=== PATIENT | female | born 1995 | race Caucasian/White ===

== ENCOUNTER 2019-09-27 13:31 | Inpatient (IN) ==
[2019-09-27] MEDS ORDERED: ACETAMINOPHEN 325 MG TABLET PO ONE (15:00)
[2019-09-27] MEDS ORDERED: 0.9 % SODIUM CHLORIDE 1,000 ML IV ONE ×2 (15:14→17:35)
--- NOTE | 2019-09-27 15:40 | XRay Report ---
CLINICAL INFORMATION: fever COMPARISON: 05/02/2017 FINDINGS: Heart size, mediastinum and pulmonary vessels are normal. Small infiltrate posterior right lower lobe appreciated. Bones and soft tissues normal. IMPRESSION: Small infiltrate, likely pneumonia, in the posterior right lower lobe Interpreted and Authenticated by: Christian Wise 09/27/19
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
[2019-09-27 16:10] LABS: ALT/SGPT 25 U/l (0-40); AST/SGOT 39 U/l (0-37); Albumin 2.7 gm/dL (3.2-5.2); Albumin/Globulin Ratio 0.8 (1.0-2.3); Alkaline Phosphatase 145 U/L (39-117); Bilirubin,Total 0.6 mg/dL (0.0-1.0); Blood Urea Nitrogen 21 mg/dl (6-20); Calcium 8.4 mg/dl (8.6-10.4); Carbon Dioxide 20 mmol/L (22-30); Globulin 3.3 gm/dL (2.2-3.7); Glomerular Filtration Rate 39; Glucose 70 mg/dL (70-105)
[2019-09-27 16:17] LABS: Chloride 87 mmol/L (96-108)
[2019-09-27 16:22] LABS: Basophils # (Auto) 0.11 K/mcL (0.00-0.30); Basophils % (Auto) 0.4 % (0.0-2.0); Eosinophils # (Auto) 0.09 K/mcL (0.00-0.70); Eosinophils % (Auto) 0.4 % (0.0-7.0); Granulocytes % (Auto) 90.7 % (38.0-78.0); Hematocrit 32.8 % (34.1-44.9); Hemoglobin 11.5 g/dL (11.2-15.7); Lymphocytes # (Auto) 0.54 K/mcL (1.50-4.80); Lymphocytes % (Auto) 2.1 % (15.5-49.0); Mean Cell Volume 93.2 fL (80.0-100.0); Mean Corpuscular HGB Conc 35.1 g/dL (31.0-36.0); Monocytes # (Auto) 1.62 K/mcL (0.10-0.90); Monocytes % (Auto) 6.4 % (1.0-12.0); Platelet Count 139 K/mcL (140-440); RBC 3.52 M/mcL (3.59-5.38); Red Cell Distribution Width 12.2 % (11.5-14.5); WBC 25.5 K/mcL (4.50-11.00)
[2019-09-27] MEDS ORDERED: POTASSIUM CHLORIDE 20 MEQ TABLET PO ONE (16:22)
[2019-09-27] MEDS ORDERED: cefTRIAXone 2 GM in DEXTROSE 5% IN WATER 50 ML IV ONE (16:22)
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
[2019-09-27] MEDS ORDERED: LACTULOSE 20 GM/30 ML ORAL.SOL PO PRN (18:53)
[2019-09-27] MEDS ORDERED: SENNOSIDES 1 TABLET PO PRN (18:53)
[2019-09-27] MEDS: 0.45 % SODIUM CHLORIDE 1,000 ML IV SCH (19:01)
[2019-09-27] MEDS: AZITHROMYCIN 500 MG in DEXTROSE 5% IN WATER 250 ML IV SCH (19:12)
[2019-09-27] MEDS: HYDROcodone/APAP 5/325MG TABLET PO PRN (19:30)
[2019-09-27] MEDS: ONDANSETRON 4 MG/2 ML VIAL IV PRN (19:34)
[2019-09-27 20:59] LABS: Appearance,Urine CLEAR; Bacteria,Urine 0 /hpf (0); Bilirubin,Urine NEG (NEG); Color,Urine STRAW; Culture Indicated,Urine NO; Glucose,Urine (UA) NEGATIVE (NEG); Ketones,Urine 5/TR mg/dL (NEG); Leukocyte Esterase,Urine 25 /uL (NEG); Nitrate,Urine NEG (NEG); Protein,Urine NEG (NEG); Specific Gravity,Urine 1.003 (1.000-1.035); Urine Blood 0.03 mg/dL (<0.03); Urine RBC 1 /hpf (0-1); Urine Squamous Epithelial Cell 1 /hpf (0-4); Urine WBC 2 /hpf (0-4); Urobilinogen,Urine NEG (NEG)
[2019-09-27] MEDS: FAMOTIDINE 20 MG TABLET PO SCH (21:22)
[2019-09-27] MEDS: ACETAMINOPHEN 325 MG TABLET PO PRN (21:22)
[2019-09-27] MEDS: 0.9 % SODIUM CHLORIDE 10 ML SYRINGE IV SCH (21:22)
[2019-09-28] MEDS: HYDROcodone/APAP 5/325MG TABLET PO PRN ×4 (02:34→18:37)
[2019-09-28] MEDS: ACETAMINOPHEN 325 MG TABLET PO PRN ×3 (03:06→20:45)
[2019-09-28] MEDS: 0.45 % SODIUM CHLORIDE 1,000 ML IV SCH ×2 (04:43→16:54)
[2019-09-28] MEDS: 0.9 % SODIUM CHLORIDE 10 ML SYRINGE IV SCH ×4 (05:55→22:45)
[2019-09-28 07:11] LABS: ALT/SGPT 19 U/l (0-40); AST/SGOT 29 U/l (0-37); Albumin 2.2 gm/dL (3.2-5.2); Albumin/Globulin Ratio 0.8 (1.0-2.3); Alkaline Phosphatase 203 U/L (39-117); Bilirubin,Direct 0.3 mg/dL (0.0-0.3); Bilirubin,Total 0.4 mg/dL (0.0-1.0); Carbon Dioxide 20 mmol/L (22-30); Chloride 97 mmol/L (96-108); Globulin 2.8 gm/dL (2.2-3.7); Glucose 64 mg/dL (70-105); Lactate Dehydrogenase 382 U/L (94-250); Uric Acid 5.6 mg/dL (2.5-8.0)
[2019-09-28 07:18] LABS: Blood Urea Nitrogen 15 mg/dl (6-20); Glomerular Filtration Rate 58; Phosphorous 1.7 mg/dL (2.7-4.5); Triglycerides 373 mg/dl (<150)
[2019-09-28] MEDS: FAMOTIDINE 20 MG TABLET PO SCH ×2 (07:24→20:45)
[2019-09-28 07:45] LABS: Basophils # (Auto) 0.17 K/mcL (0.00-0.30); Basophils % (Auto) 0.7 % (0.0-2.0); Eosinophils # (Auto) 0.01 K/mcL (0.00-0.70); Eosinophils % (Auto) 0 % (0.0-7.0); Granulocytes % (Auto) 89.5 % (38.0-78.0); Hematocrit 30.8 % (34.1-44.9); Hemoglobin 10.8 g/dL (11.2-15.7); Lymphocytes # (Auto) 0.65 K/mcL (1.50-4.80); Lymphocytes % (Auto) 2.7 % (15.5-49.0); Mean Cell Volume 93.9 fL (80.0-100.0); Mean Corpuscular HGB Conc 35.1 g/dL (31.0-36.0); Mean Platelet Volume 10.6 fL (7.4-10.4); Monocytes # (Auto) 1.72 K/mcL (0.10-0.90); Monocytes % (Auto) 7.1 % (1.0-12.0); Platelet Count 132 K/mcL (140-440); RBC 3.28 M/mcL (3.59-5.38); Red Cell Distribution Width 12.2 % (11.5-14.5); WBC 24.2 K/mcL (4.50-11.00)
[2019-09-28] MEDS ORDERED: POTASSIUM CHLORIDE 20 MEQ TABLET PO ONE (08:51)
[2019-09-28] MEDS ORDERED: cefTRIAXone 2 GM in DEXTROSE 5% IN WATER 50 ML IV SCH (09:00)
[2019-09-28] MEDS ORDERED: POTASSIUM PHOSPHATE 40 MEQ in DEXTROSE 5% IN WATER 500 ML IV ONE ×2 (09:00→19:41)
[2019-09-28] MEDS ORDERED: POTASSIUM CHLORIDE 40 MEQ in DEXTROSE 5% IN WATER 500 ML IV ONE (09:00)
[2019-09-28] MEDS ORDERED: FLU VACC QS2019-20(6MOS UP)/PF 60 MCG/0.5 ML SYRINGE IM ONE (10:00)
[2019-09-28] MEDS: AZITHROMYCIN 500 MG in DEXTROSE 5% IN WATER 250 ML IV SCH (10:08)
--- NOTE | 2019-09-28 12:58 | Internal Med Progress Note ---
Medical - PN: Subj Patient information: Note initiated : 09/28/19 at 12:56 pm Service Date, if different from initiated Date: [] Patient: Tatiana Carrillo 24 y/o F admitted on 09/27/19 for Cold/Flu. Chief Complaint: [] Interval history: Ms. Carrillo is a 24 year old F with past medical history of endometriosis, poss ible interstitial cystitis who presents to the emergency department with 6 days of illness. She states that she has had high fever, body aches, nausea and vomiting of bilious emesis for the first 4 days as well as a sore throat. She remains febrile, was 102 degrees in the emergency department. The body aches are ongoing and she still has a sore throat. In addition she is developed some chest pain in the lower sternal/right lower chest area with breathing. She has had no cough or sputum production. She does complain of a dry mouth. Today was the sixth day of symptoms and she presents for further evaluation. She has had no ill contacts. She has had no travel, no exposures to recent tr avelers. She did not get a flu shot. In the emergency department, she has significant leukocytosis, fever, tachycardia and tachypnea. Lactate is normal. She is in renal failure with creatinine of 1.8. Patient does note that she has been drinking fluids, particularly water to try to stay hydrated. She noticed her urine was a little dark yesterday. She is noticed no blood in her urine. Patient feeling a little better this morning. Still with significant right- sided sharp pain in the lower chest with inspiration. No cough, no sputum production. Good urine output. Has not felt feverish. - Constitutional Vitals: Vital Signs Temp Pulse Resp BP Pulse Ox 98.7 F 118 H 25 H 105/61 96 09/28/19 12:00 09/28/19 12:00 09/28/19 11:00 09/28/19 12:09/28/19 12:00 Period Temp Pulse Resp BP Sys/Peña Pulse Ox Last 24 Hr 97.7 F-102.4 F 96-140 17-37 87-120/43-98 90-100 Intake and Output 09/27/19 09/28/19 09/28/19 21:59 05:59 13:59 Intake Total 1000 3470 410 Output Total 650 2900 800 Balance 350 570 -390 Weight 136 lb 11.2 oz 136 lb 11.2 oz Patient Weight 09/29/19 05:59 Weight 136 lb 11.2 oz Intake & Output: Intake & Output 09/27/19 09/28/19 09/28/19 21:59 05:59 13:59 Intake Total 1000 3470 410 Output Total 650 2900 800 Balance 350 570 -390 Weight 136 lb 11.2 oz 136 lb 11.2 oz Intake: IV 1000 2270 50 Sodium Chloride 0.45% 1,000 ml 970 @ 100 mls/hr IV .Q10H [facility] Rx#: [id number] Sodium Chloride 0.9% 1,000 ml @ 1000 1000 Wide Open IV BOLUS ONE Rx#: [id number] Zithromax 500 mg In Dextrose 5% 250 in Water 250 ml @ 250 mls/hr IV DAILY [facility] Rx#:[id number] Rocephin 2 gm In Dextrose 5% in 50 Water 50 ml @ 100 mls/hr IV DAILY [facility] Rx#:[id number] Rocephin 2 gm In Dextrose 5% in 50 Water 50 ml @ 100 mls/hr IV ONCE ONE Rx#:[id number] Oral 1200 360 Output: Void Amount 650 2900 800 Other: Urine Appearance Clear Clear Clear Urine Color Bright Yellow Bright Yellow Bright Yellow Urine Odor Normal Exam: General: Appears more comfortable, nontoxic Chest: Diminished breath sounds in the right lower lung field without egophony. Otherwise no rales or wheezing. Respirations are mildly labored Cardiovascular: Mildly tachycardic, regular, no edema Abdomen: Soft, mild tenderness with palpation over the right upper quadrant/lower anterior chest wall. No abdominal guarding or rebound Neuro: Alert, oriented x3, ambulatory. Medical - PN: Obj Da - Labs CBC & Chem 7: 09/28/19 04:46 09/28/19 04:46 Labs: Abnormal Lab Results 09/28/19 09/28/19 09/27/19 04:46 04:46 22:43 WBC 24.2 H RBC 3.28 L Hgb 10.8 L Hct 30.8 L Plt Count 132 L MPV 10.6 H Gran % 89.5 H Lymph % (Auto) 2.7 L Gran # 21.64 H Lymph # (Auto) 0.65 L [place] # (Auto) 1.72 H Sodium 132 L 129 L Potassium 2.8 L* Chloride Carbon Dioxide 20 L BUN Creatinine 1.3 H Glucose 64 L Calcium 8.0 L Phosphorus 1.7 L GGT 140 H AST Alkaline Phosphatase 203 H Lactate Dehydrogenase 382 H Total Protein 5.0 L Albumin 2.2 L Albumin/Globulin Ratio 0.8 L Triglycerides 373 H Urine Ketones Urine Occult Blood Ur Leukocyte Esterase 09/27/19 09/27/19 09/27/19 20:00 19:47 15:25 WBC RBC Hgb Hct Plt Count MPV Gran % Lymph % (Auto) Gran # Lymph # (Auto) [place] # (Auto) Sodium 129 L 123 L Potassium 3.1 L Chloride 87 L Carbon Dioxide 20 L BUN 21 H Creatinine 1.8 H Glucose Calcium 8.4 L Phosphorus GGT AST 39 H Alkaline Phosphatase 145 H Lactate Dehydrogenase Total Protein Albumin 2.7 L Albumin/Globulin Ratio 0.8 L Triglycerides Urine Ketones 5/tr A Urine Occult Blood 0.03 A Ur Leukocyte Esterase 25 A 09/27/19 15:25 WBC 25.5 H RBC 3.52 L Hgb Hct 32.8 L Plt Count 139 L MPV 11.0 H Gran % 90.7 H Lymph % (Auto) 2.1 L Gran # 23.09 H Lymph # (Auto) 0.54 L [place] # (Auto) 1.62 H Sodium Potassium Chloride Carbon Dioxide BUN Creatinine Glucose Calcium Phosphorus GGT AST Alkaline Phosphatase Lactate Dehydrogenase Total Protein Albumin Albumin/Globulin Ratio Triglycerides Urine Ketones Urine Occult Blood Ur Leukocyte Esterase Meds: Medications Acetaminophen (Tylenol) 650 mg PO Q6HP PRN; Protocol PRN Reason: Per Pain Protocol/Fever > 101 Last Admin: 09/28/19 03:06 Dose: 650 mg Documented by: Hydrocodone Bitart/Acetaminophen ([place] 5/325mg) 1 tab PO Q4HP PRN; Protocol PRN Reason: Per Pain Protocol Last Admin: 09/28/19 07:23 Dose: 1 tab Documented by: Famotidine (Pepcid) 20 mg PO BID [facility] Last Admin: 09/28/19 07:24 Dose: 20 mg Documented by: Sodium Chloride (Sodium Chloride 0.45%) 1,000 mls @ 100 mls/hr IV .Q10H [facility] Last Admin: 09/28/19 04:43 Dose: 100 mls/hr Documented by: Ceftriaxone Sodium 2 gm/ (Dextrose) 50 mls @ 100 mls/hr IV DAILY [facility]; Protocol Last Infusion: 09/28/19 10:40 Dose: Infused Documented by: Azithromycin 500 mg/ Dextrose 250 mls @ 250 mls/hr IV DAILY [facility]; Protocol Stop: 09/29/19 09:59 Last Admin: 09/28/19 10:08 Dose: 250 mls/hr Documented by: Potassium Phosphate 40 meq/ (Dextrose) 509.0909 mls @ 127.273 mls/hr IV ONCE ONE Stop: 09/28/19 12:59 Last Admin: 09/28/19 10:07 Dose: 127.273 mls/hr Documented by: Lactulose (Cephulac) 10 gm PO DAILYP PRN PRN Reason: Constipation Ondansetron HCl (Zofran) 4 mg IV Q4HP PRN; Protocol PRN Reason: Nausea And Vomiting Last Admin: 09/27/19 19:34 Dose: 4 mg Documented by: Senna (Senokot) 2 tab PO HSP PRN PRN Reason: Constipation Sodium Chloride (Saline Flush) 10 ml IV Q8 [facility] Last Admin: 09/28/19 05:55 Dose: 10 ml Documented by: - Imaging and cardiology Chest x-ray Status: image reviewed by me Additional comments: Repeat radiograph today shows continued development of right lower/posterior infiltrate. Clear costophrenic margins. Medical - PN: A/P - Time Spent With Patient Total time spent is greater than 50% in coordination of care (as documented) at patient's floor/unit and/or counseling patient: - Narrative A/P Narrative: 24-year-old female presenting with fever, leukocytosis, tachycardia and tach ypnea with normal lactate. Has right lower lobe infiltrate. Sepsis from pneumonia. Sepsis as noted by tachypnea, tachycardia, leukocytosis and fever. Lactate is normal, not severe sepsis or septic shock. Initial mild right lower lobe infiltrate on radiograph, is worsened with hydration. Still with white count of 24,000, PCT 48, though appears nontoxic and tachypnea and tachycardia are improving with therapy. RVP both negative. Monospot negative. Urinary pneumococcal antigen, serum mycoplasma are negative. Still concerned this could be a post influenza pneumonia, having now cleared her influenza infection, thus will continue to cover for staph aureus. Acute renal failure. Improving. Creatinine was 1.8, now down to 1.3. BUN is not significantly elevated. Possibly representing prerenal, though ATN is a possibility from her prolonged illness with volume depletion leading to renal hypoperfusion. Post infectious glomerulonephritis is also a possibility. Fractional excretion of sodium 1.9%, suggesting ATN, though has improved with fluids however. Hyponatremia. Serum sodium 123 at presentation. 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 Received saline boluses in ED, but serum sodium stable at 129 yesterday evening on half-normal saline, slowly up to 132 today.. Hypokalemia, possibly from GI losses and poor intake. Plan: Continue with ceftriaxone and azithromycin (will continue as a throat given severity of illness); vancomycin possible staph pneumonia Continue to follow white count Follow-up Legionella urinary antigen Continue with 0.45% NS Follow serum sodium, likely able to change to NS for hydration later today Replete potassium PPx: SCD's Full code Medical - PN: Qual - VTE Deep Vein Thrombosis/Pulmonary Embolism Present on Admission: No
--- NOTE | 2019-09-28 13:23 | XRay Report ---
CLINICAL INFORMATION: f/u Pneumonia COMPARISON: 09/27/2019 FINDINGS: Heart size, mediastinum and pulmonary vessels are unremarkable. The infiltrate in the posterior medial right lower lobe has increased in size and is now consolidated. A small associated right pleural effusion has developed. Bones and soft tissues normal IMPRESSION: Moderate right lower lobe infiltrate - likely community acquired pneumonia. Worsening from yesterday Interpreted and Authenticated by: Christian Wise 09/28/19
[2019-09-28] MEDS: CEFEPIME 2 GM VIAL IV SCH ×2 (14:56→23:47)
--- NOTE | 2019-09-28 15:34 | Cat Scan Report ---
CLINICAL INFORMATION: Pneumonia and leukocytosis. COMPARISON: None. TECHNIQUE: Enteric contrast was utilized. 80 cc of Isovue-370 were injected intravenously, and 50 seconds later 2.5 mm helical slices were obtained from the lung apices through the subtrochanteric regions of the femurs. Following reconstruction, 2.5 mm sagittal, coronal and axial reformatted images were processed and reviewed at multiple windows and levels. 7 mm MIP reconstructions were obtained through the lungs to optimize nodule detection.The exam was performed using radiation dose optimization techniques including, but not limited to, automated exposure control, adjustment of the mA and/or kV according to patient size and use of iterative reconstruction technique. FINDINGS: Pulmonary parenchymal windows show moderate consolidated infiltrate in the medial posterior and lateral basilar segments of both lower lobes - more prominent on the right. Small right and tiny left pleural effusions noted. The mediastinal windows show the heart is normal in size and configuration without plaque in the coronary arteries. The thoracic aorta and pulmonary arteries are normal in diameter and well opacified. There is no adenopathy in the mediastinal hilar or axillary regions. The thyroid is unremarkable. The esophagus is grossly normal. Abdominal images show moderate hepatomegaly with vertical dimension of the right hepatic lobe of 20 cm. In addition, there is inhomogeneous attenuation and periportal edema suggesting diffuse hepatic inflammation. Gallbladder wall is normal thickness but there is pericholecystic fluid. Common bile duct is normal: 6 mm. The pancreas, both adrenal glands spleen and aorta are all unremarkable. There are multiple patchy wedge-shaped low-attenuation foci scattered throughout the right kidney. In the left kidney, moderate patchy low-attenuation lesions in the mid/ inferior region span to 3 cm . No hydronephrosis or stone. The stomach, small and large bowel show symmetric dilatation of patible with mild ileus. There is mild mesenteric edema and a small amount of ascites. Pelvic images show uterus is anteflexed and normal in size and contains an IUD properly position. Region ovaries are normal. Urinary bladder shows mild wall thickening. Bone and show no osseous abnormality IMPRESSION: 1. Moderate consolidated infiltrates in both posterior lower lobes with small associated effusions. At this age, bilateral infection are more common than aspiration. 2. Moderate hepatomegaly with periportal edema suggesting diffuse hepatic inflammation. 3. Multiple wedge-shaped low-attenuation lesions disseminated throughout the right kidney. There are also multiple low-attenuation lesions in the mid and inferior left kidney. Suspect bilateral pyelonephritis. Renal infarcts are possible, but, less likely. 4. Mild ileus with small amount of ascites and moderate mesenteric edema. Interpreted and Authenticated by: Christian Wise 09/28/19
[2019-09-28] MEDS: ONDANSETRON 4 MG/2 ML VIAL IV PRN (17:10)
[2019-09-28 19:33] LABS: ALT/SGPT 25 U/l (0-40); AST/SGOT 32 U/l (0-37); Albumin 2.3 gm/dL (3.2-5.2); Albumin/Globulin Ratio 0.8 (1.0-2.3); Alkaline Phosphatase 182 U/L (39-117); Bilirubin,Direct 0.2 mg/dL (0.0-0.3); Bilirubin,Total 0.3 mg/dL (0.0-1.0); Blood Urea Nitrogen 12 mg/dl (6-20); Calcium 7.7 mg/dl (8.6-10.4); Carbon Dioxide 22 mmol/L (22-30); Chloride 100 mmol/L (96-108); Glucose 127 mg/dL (70-105); Lactate Dehydrogenase 345 U/L (94-250); Triglycerides 182 mg/dl (<150); Uric Acid 4.2 mg/dL (2.5-8.0)
[2019-09-28 19:39] LABS: Glomerular Filtration Rate 79; Phosphorous 2.1 mg/dL (2.7-4.5)
[2019-09-28] MEDS: NACL 0.9% W/KCL 20MEQ 1,000 ML IV SCH (19:49)
[2019-09-28] MEDS ORDERED: POTASSIUM PHOSPHATE 66 MEQ/15 ML VIAL IV ONE (20:00)
[2019-09-28] MEDS: IBUPROFEN 200 MG TABLET PO PRN (20:16)
[2019-09-29] MEDS: IBUPROFEN 200 MG TABLET PO PRN ×3 (01:08→21:07)
[2019-09-29] MEDS: HYDROcodone/APAP 5/325MG TABLET PO PRN ×5 (01:08→21:07)
[2019-09-29] MEDS: ACETAMINOPHEN 325 MG TABLET PO PRN (04:50)
[2019-09-29] MEDS: NACL 0.9% W/KCL 20MEQ 1,000 ML IV SCH ×4 (05:51→21:07)
[2019-09-29] MEDS: 0.9 % SODIUM CHLORIDE 10 ML SYRINGE IV SCH ×3 (05:54→22:20)
[2019-09-29 06:35] LABS: Basophils # (Auto) 0.06 K/mcL (0.00-0.30); Basophils % (Auto) 0.3 % (0.0-2.0); Eosinophils # (Auto) 0.06 K/mcL (0.00-0.70); Eosinophils % (Auto) 0.3 % (0.0-7.0); Granulocytes % (Auto) 79.3 % (38.0-78.0); Hematocrit 29.8 % (34.1-44.9); Hemoglobin 10.3 g/dL (11.2-15.7); Lymphocytes # (Auto) 1.36 K/mcL (1.50-4.80); Lymphocytes % (Auto) 7.1 % (15.5-49.0); Mean Cell Volume 94.6 fL (80.0-100.0); Mean Corpuscular HGB Conc 34.6 g/dL (31.0-36.0); Mean Platelet Volume 10.5 fL (7.4-10.4); Monocytes # (Auto) 2.47 K/mcL (0.10-0.90); Platelet Count 133 K/mcL (140-440); RBC 3.15 M/mcL (3.59-5.38); Red Cell Distribution Width 12.6 % (11.5-14.5)
[2019-09-29 06:45] LABS: ALT/SGPT 21 U/l (0-40); AST/SGOT 25 U/l (0-37); Albumin/Globulin Ratio 0.7 (1.0-2.3); Alkaline Phosphatase 152 U/L (39-117); Bilirubin,Direct 0.3 mg/dL (0.0-0.3); Bilirubin,Total 0.4 mg/dL (0.0-1.0); Blood Urea Nitrogen 13 mg/dl (6-20); Calcium 7.8 mg/dl (8.6-10.4); Carbon Dioxide 22 mmol/L (22-30); Chloride 103 mmol/L (96-108); Globulin 2.9 gm/dL (2.2-3.7); Glomerular Filtration Rate 79; Glucose 80 mg/dL (70-105); Lactate Dehydrogenase 375 U/L (94-250); Triglycerides 148 mg/dl (<150); Uric Acid 3.7 mg/dL (2.5-8.0)
[2019-09-29 06:47] LABS: Phosphorous 3.8 mg/dL (2.7-4.5)
[2019-09-29] MEDS: CEFEPIME 2 GM VIAL IV SCH ×3 (07:47→21:53)
[2019-09-29] MEDS: AZITHROMYCIN 500 MG in DEXTROSE 5% IN WATER 250 ML IV SCH (09:04)
[2019-09-29] MEDS ORDERED: POTASSIUM CHLORIDE 20 MEQ TABLET PO ONE (09:16)
[2019-09-29] MEDS: FAMOTIDINE 20 MG TABLET PO SCH ×2 (09:44→21:53)
[2019-09-29] MEDS ORDERED: SENNOSIDES 1 TABLET PO PRN (11:17)
[2019-09-29] MEDS ORDERED: ONDANSETRON 4 MG/2 ML VIAL IV PRN (11:17)
[2019-09-29] MEDS ORDERED: LACTULOSE 20 GM/30 ML ORAL.SOL PO PRN (11:17)
[2019-09-29] MEDS ORDERED: FLU VACC QS2019-20(6MOS UP)/PF 60 MCG/0.5 ML SYRINGE IM ONE (11:30)
--- NOTE | 2019-09-29 12:08 | Internal Med Progress Note ---
Medical - PN: Subj Patient information: Note initiated : 09/29/19 at 12:06 pm Service Date, if different from initiated Date: [] Patient: Tatiana Carrillo 24 y/o F admitted on 09/27/19 for Cold/Flu. Chief Complaint: [] Interval history: Ms. Carrillo is a 24 year old F with past medical history of endometriosis, poss ible interstitial cystitis who presents to the emergency department with 6 days of illness. She states that she has had high fever, body aches, nausea and vomiting of bilious emesis for the first 4 days as well as a sore throat. She remains febrile, was 102 degrees in the emergency department. The body aches are ongoing and she still has a sore throat. In addition she is developed some chest pain in the lower sternal/right lower chest area with breathing. She has had no cough or sputum production. She does complain of a dry mouth. Today was the sixth day of symptoms and she presents for further evaluation. She has had no ill contacts. She has had no travel, no exposures to recent tr avelers. She did not get a flu shot. In the emergency department, she has significant leukocytosis, fever, tachycardia and tachypnea. Lactate is normal. She is in renal failure with creatinine of 1.8. Patient does note that she has been drinking fluids, particularly water to try to stay hydrated. She noticed her urine was a little dark yesterday. She is noticed no blood in her urine. Patient feeling a little better this morning. Still with significant right- sided sharp pain in the lower chest with inspiration. No cough, no sputum production. Good urine output. Has not felt feverish. 09/28 Patient continues to improve. White count down to 19,000. Still right upper quadrant/lower right chest discomfort. Continues to have no cough or sputum production. - Constitutional Vitals: Vital Signs Temp Pulse Resp BP Pulse Ox 97.9 F 87 16 105/59 96 09/29/19 04:01 09/29/19 05:08 09/29/19 05:01 09/29/19 05:01 09/29/19 05:08 Period Temp Pulse Resp BP Sys/Peña Pulse Ox Last 24 Hr 97.9 F-102.5 F 82-131 16-28 98-132/59-91 95-100 Intake and Output 09/28/19 09/29/19 09/29/19 21:59 05:59 13:59 Intake Total 3642.0909 2229.0909 Output Total 3475 800 600 Balance 167.0909 1429.0909 -600 Weight 140 lb 3.2 oz Intake & Output: Intake & Output 09/28/19 09/29/19 09/29/19 21:59 05:59 13:59 Intake Total 3642.0909 2229.0909 Output Total 3475 800 600 Balance 167.0909 1429.0909 -600 Weight 140 lb 3.2 oz Intake: IV 1802.0909 1509.0909 Sodium Chloride 0.45% 1,000 ml 1293 @ 100 mls/hr IV .Q10H [facility] Rx#: [id number] NaCl 0.9% W/KCl 20Meq 1000ML 1, 1000 000 ml @ 100 mls/hr IV .Q10H [facility] Rx#:[id number] Potassium Phosphate 40 Meq In 509.0909 509.0909 Dextrose 5% in Water 500 ml @ 127.273 mls/hr IV ONCE ONE Rx#: [id number] Oral 1840 720 Output: Urine Catheter Amount 600 Void Amount 2875 800 600 Other: Meal Dinner Percent of Meal Consumed 50% Feeding Ability Independent Urine Appearance Clear Clear Urine Color Bright Yellow Pale Urine Odor Normal Exam: General: Looks more comfortable, nontoxic Chest: Diminished at the right base, no rales Cardiovascular: Regular, not tachycardic, no edema Back: Mild left CVA tenderness Abdomen: Firm, mild right upper quadrant tenderness with palpation Neuro: Alert, oriented x3, ambulatory Medical - PN: Obj Da - Labs CBC & Chem 7: 09/29/19 04:51 09/29/19 04:51 Labs: Abnormal Lab Results 09/29/19 09/29/19 09/28/19 04:51 04:51 18:20 WBC 19.0 H RBC 3.15 L Hgb 10.3 L Hct 29.8 L Plt Count 133 L MPV 10.5 H Gran % 79.3 H Lymph % (Auto) 7.1 L [place] % (Auto) 13.0 H Gran # 15.09 H Lymph # (Auto) 1.36 L [place] # (Auto) 2.47 H Sodium Potassium Chloride Carbon Dioxide BUN Creatinine Glucose 127 H Calcium 7.8 L 7.7 L Phosphorus 2.1 L GGT 135 H 154 H AST Alkaline Phosphatase 152 H 182 H Lactate Dehydrogenase 375 H 345 H Total Protein 4.9 L 5.3 L Albumin 2.0 L 2.3 L Albumin/Globulin Ratio 0.7 L 0.8 L Triglycerides 182 H Urine Ketones Urine Occult Blood Ur Leukocyte Esterase 09/28/19 09/28/19 09/27/19 04:46 04:46 22:43 WBC 24.2 H RBC 3.28 L Hgb 10.8 L Hct 30.8 L Plt Count 132 L MPV 10.6 H Gran % 89.5 H Lymph % (Auto) 2.7 L [place] % (Auto) Gran # 21.64 H Lymph # (Auto) 0.65 L [place] # (Auto) 1.72 H Sodium 132 L 129 L Potassium 2.8 L* Chloride Carbon Dioxide 20 L BUN Creatinine 1.3 H Glucose 64 L Calcium 8.0 L Phosphorus 1.7 L GGT 140 H AST Alkaline Phosphatase 203 H Lactate Dehydrogenase 382 H Total Protein 5.0 L Albumin 2.2 L Albumin/Globulin Ratio 0.8 L Triglycerides 373 H Urine Ketones Urine Occult Blood Ur Leukocyte Esterase 09/27/19 09/27/19 09/27/19 20:00 19:47 15:25 WBC RBC Hgb Hct Plt Count MPV Gran % Lymph % (Auto) [place] % (Auto) Gran # Lymph # (Auto) [place] # (Auto) Sodium 129 L 123 L Potassium 3.1 L Chloride 87 L Carbon Dioxide 20 L BUN 21 H Creatinine 1.8 H Glucose Calcium 8.4 L Phosphorus GGT AST 39 H Alkaline Phosphatase 145 H Lactate Dehydrogenase Total Protein Albumin 2.7 L Albumin/Globulin Ratio 0.8 L Triglycerides Urine Ketones 5/tr A Urine Occult Blood 0.03 A Ur Leukocyte Esterase 25 A 09/27/19 15:25 WBC 25.5 H RBC 3.52 L Hgb Hct 32.8 L Plt Count 139 L MPV 11.0 H Gran % 90.7 H Lymph % (Auto) 2.1 L [place] % (Auto) Gran # 23.09 H Lymph # (Auto) 0.54 L [place] # (Auto) 1.62 H Sodium Potassium Chloride Carbon Dioxide BUN Creatinine Glucose Calcium Phosphorus GGT AST Alkaline Phosphatase Lactate Dehydrogenase Total Protein Albumin Albumin/Globulin Ratio Triglycerides Urine Ketones Urine Occult Blood Ur Leukocyte Esterase Meds: Medications Acetaminophen (Tylenol) 650 mg PO Q6HP PRN; Protocol PRN Reason: Per Pain Protocol/Fever > 101 Hydrocodone Bitart/Acetaminophen ([place] 5/325mg) 1 tab PO Q4HP PRN; Protocol PRN Reason: Per Pain Protocol Cefepime HCl (Maxipime) 2 gm IV Q8H [facility]; Protocol Famotidine (Pepcid) 20 mg PO BID [facility] Potassium Chloride/Sodium Chloride (Nacl 0.9% W/Kcl 20meq 1000ml) 1,000 mls @ 100 mls/hr IV .Q10H [facility] Ibuprofen (Motrin) 200 mg PO Q4HP PRN; Protocol PRN Reason: Fever/Pain Lactulose (Cephulac) 10 gm PO DAILYP PRN PRN Reason: Constipation Ondansetron HCl (Zofran) 4 mg IV Q4HP PRN; Protocol PRN Reason: Nausea And Vomiting Senna (Senokot) 2 tab PO HSP PRN PRN Reason: Constipation Sodium Chloride (Saline Flush) 10 ml IV Q8 [facility] Medical - PN: A/P - Time Spent With Patient Total time spent is greater than 50% in coordination of care (as documented) at patient's floor/unit and/or counseling patient: Greater than 35 minutes - Narrative A/P Narrative: 24-year-old female presenting with fever, leukocytosis, tachycardia and tachypnea with normal lactate. Has right lower lobe infiltrate. Sepsis. Suspected source now pyelonephritis, as well as pneumonia. Sepsis as noted by tachypnea, tachycardia, leukocytosis and fever. Lactate was normal, not severe sepsis or septic shock. Initial mild right lower lobe infiltrate on radiograph, is worsened with hydration. Also with findings on CT for right greater than left bilateral pyelonephritis. That may explain her persistent fevers and slow to respond white count. White count, tachycardia improving with therapy. RVP both negative. Monospot negative. Urinary pneumococcal antigen, serum mycoplasma are negative. Right upper quadrant tenderness. Usually thought pleuritic secondary to pneumonia. Does have mild abnormalities in alkaline phosphatase and GGT with normal transaminases and bilirubin. Acute renal failure. Improving/resolving. Creatinine was 1.8 at presentation, now down to 1.0. Possibly representing prerenal, initially ATN thought possibility and fractional excretion of sodium was 1.9%, but rapid recovery suggested was prerenal. Hyponatremia. Resolved. Serum sodium 123 at presentation. 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 Hypokalemia, possibly from GI losses and poor intake. Plan: Continue with cefepime and azithromycin (changed to cefepime yesterday afternoon) ID consultation, discussed with Dr. Alves Continue to follow white count Follow-up Legionella urinary antigen Changed to NS yesterday, continue Replete potassium as needed Change to medical status Check blood cultures, apparently were not obtained in the ED Check HIV and hepatitis screens with liver enzyme abnormalities and inflammation noted on CT PPx: SCD's Full code Medical - PN: Qual - VTE Deep Vein Thrombosis/Pulmonary Embolism Present on Admission: No
[2019-09-29 14:21] LABS: Hepatitis C Virus Antibody NON REACTIVE (NEGATIVE)
--- NOTE | 2019-09-29 14:45 | Infectious Disease Consult ---
History of Present Illness Patient information: Note initiated : 09/29/19 at 2:03 pm Service Date, if different from initiated Date: [] Patient: Tatiana Carrillo 24 y/o F admitted on 09/27/19 for Cold/Flu. 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 It all started all of a sudden, and pt reported additional symptoms of right sided chest, dina pain and b/l flank pain. She also reported noticing burning while urination, increased freq of urination since last 6 days. Endorses vomiting for first few days, green colored. Denies any cough, sputum production. Denies any sick contacts. Has not recieved flu shot. Denies any travel outside [place] in last 3 mnths.In the ER she had a temp of 102F, HR 140, BP 105/57, satting 97% on RA. WBC was 25.5 k with neutrophillic predominance, Na 123, Cr 1.8, AST 39, ALT 25, ALP 145 and normal Timothy. CXR showed right lower lobe infiltrate. Pt was started on IV Ceftriaxone and IV Azithromycin. MRSA nasal PCR and resp viral panel was sent. I had discussed the case with Dr Cabral yesterday with plans for expanding antibiotics to IV vanc and IV Cefepime, stopping ceftriaxone and continuing Azithro (given Legionella in differential). At time of visit today, pt reported feeling better. She didnot have any fever, n/v, diarrhea. Endorsed right sided chest and epigastric pain. She shared that she has not been sexually active in last 1 month, and prior to that had 4 male partners. Review of Systems All systems PM: reviewed and no additional remarkable complaints except as sta bernarda Constitutional: as per HPI Past History Past medical history: endometriosis Past social history: lives in [place] Occasional consumes alc. On review of records has Hx of acute alc intoxication, trazodone overdose needing ER visit denies any smoking, injection drug use Medications and Allergies Allergies Allergy/AdvReac Type Severity Reaction Status Date / Time ketamine Allergy Unknown Verified 09/27/19 16:42 Amoxicillin [From Augmentin] Allergy Swelling, Verified 09/27/19 16:42 hives clavulanic acid Allergy Swelling, Verified 09/27/19 16:42 [From Augmentin] hives Leuprolide [From Lupron] AdvReac Unknown Verified 09/27/19 16:42 Physical Examination Vital signs: Temp Pulse Resp BP Pulse Ox 36.6 C 87 16 105/59 96 09/29/19 04:01 09/29/19 05:08 09/29/19 05:01 09/29/19 05:01 09/29/19 05:08 General appearance: no acute distress Eyes pulmonary: nonicteric Auscultation: right: diminished breath sounds (bronchial breath sounds over right posterior lung base, rest clear) Cardiovascular: regular rate and rhythm (no murmur noted) Gastrointestinal: hypoactive bowel sounds, soft (tender to touch in right upper and epigastriic area. No rebound, guarding. ) Integumentary: normal Extremities: no cyanosis, no edema, no ischemia or petechiae normal mental status, non-focal exam Results - Laboratory Findings CBC and BMP: 09/30/19 05:10 09/30/19 05:10 Abnormal lab findings: Abnormal Labs 09/27/19 09/27/19 09/27/19 15:25 15:25 19:47 WBC 25.5 H RBC 3.52 L Hgb Hct 32.8 L Plt Count 139 L MPV 11.0 H Gran % 90.7 H Lymph % (Auto) 2.1 L [place] % (Auto) Gran # 23.09 H Lymph # (Auto) 0.54 L Mobile # (Auto) 1.62 H Sodium 123 L Potassium 3.1 L Chloride 87 L Carbon Dioxide 20 L BUN 21 H Creatinine 1.8 H Glucose Calcium 8.4 L Phosphorus GGT AST 39 H Alkaline Phosphatase 145 H Lactate Dehydrogenase Total Protein Albumin 2.7 L Albumin/Globulin Ratio 0.8 L Triglycerides Urine Ketones 5/tr A Urine Occult Blood 0.03 A Ur Leukocyte Esterase 25 A 09/27/19 09/27/19 09/28/19 20:00 22:43 04:46 WBC 24.2 H RBC 3.28 L Hgb 10.8 L Hct 30.8 L Plt Count 132 L MPV 10.6 H Gran % 89.5 H Lymph % (Auto) 2.7 L [place] % (Auto) Gran # 21.64 H Lymph # (Auto) 0.65 L Mobile # (Auto) 1.72 H Sodium 129 L 129 L Potassium Chloride Carbon Dioxide BUN Creatinine Glucose Calcium Phosphorus GGT AST Alkaline Phosphatase Lactate Dehydrogenase Total Protein Albumin Albumin/Globulin Ratio Triglycerides Urine Ketones Urine Occult Blood Ur Leukocyte Esterase 09/28/19 09/28/19 09/29/19 04:46 18:20 04:51 WBC 19.0 H RBC 3.15 L Hgb 10.3 L Hct 29.8 L Plt Count 133 L MPV 10.5 H Gran % 79.3 H Lymph % (Auto) 7.1 L [place] % (Auto) 13.0 H Gran # 15.09 H Lymph # (Auto) 1.36 L Mobile # (Auto) 2.47 H Sodium 132 L Potassium 2.8 L* Chloride Carbon Dioxide 20 L BUN Creatinine 1.3 H Glucose 64 L 127 H Calcium 8.0 L 7.7 L Phosphorus 1.7 L 2.1 L GGT 140 H 154 H AST Alkaline Phosphatase 203 H 182 H Lactate Dehydrogenase 382 H 345 H Total Protein 5.0 L 5.3 L Albumin 2.2 L 2.3 L Albumin/Globulin Ratio 0.8 L 0.8 L Triglycerides 373 H 182 H Urine Ketones Urine Occult Blood Ur Leukocyte Esterase 09/29/19 04:51 WBC RBC Hgb Hct Plt Count MPV Gran % Lymph % (Auto) [place] % (Auto) Gran # Lymph # (Auto) Mobile # (Auto) Sodium Potassium Chloride Carbon Dioxide BUN Creatinine Glucose Calcium 7.8 L Phosphorus GGT 135 H AST Alkaline Phosphatase 152 H Lactate Dehydrogenase 375 H Total Protein 4.9 L Albumin 2.0 L Albumin/Globulin Ratio 0.7 L Triglycerides Urine Ketones Urine Occult Blood Ur Leukocyte Esterase Microbiology: Microbiology 09/28/19 18:26 Urine - Clean Void Mid-Stream Urine Culture - Preliminary 09/27/19 19:35 Nasopharynx Respiratory Panel (PCR) - Final 09/27/19 19:35 Nasopharynx Respiratory Virus Panel (PCR) - Final 09/27/19 20:24 Nose MRSA (PCR) - Final Assessment and Plan - Narrative A/P Narrative: A: 1. Community acquired pneumonia: most likely pathogens could be Strept pneumoniae, Staph aureus. Given hyponatremia, LFT abnromalities, b/l infiltrates on CT raises concerns for Legionella. 2. B/l pyelonepheritis: in light of dysuria, increased freq and b/l flank pain - risk factors: young sexually active female - HIV serology neg, Mycoplasma IgM neg 3. Hepatomegaly: - could be hepatitis (Hep C neg, pt vaccinated for Hep A and B as a child). Has mildy elev GGT and ALP. 4. History of Penicillin allergy as a young child: skin rash, without any systemic symptoms. hasnot recieved penicillin since then. Based on quick response (clinical, downtrending WBCs) to IV antibiotics and IV fluids, neg RVP; I am suspecting bacterial pathogen as potential causes of pt's presentation. The likely mechanism seems to be ascending UTI, with bacteremia and seeding of lungs. Recommendations: - Send blood Cx, 2 sets as not sent in ED - Continue IV Cefepime 2 gm q8 hrs and IV Azithromycin 500 mg q24 hrs, day 2 - urine Cx under incubation at Micro. will follow - flu shot before discharge - will test for penicillin allergy if pt willing. Information shared with her and her father at visit today will follow Denis Alves MD Infectious diseases
[2019-09-30] MEDS: HYDROcodone/APAP 5/325MG TABLET PO PRN ×4 (03:05→18:55)
[2019-09-30] MEDS: CEFEPIME 2 GM VIAL IV SCH ×3 (05:21→22:06)
[2019-09-30] MEDS: 0.9 % SODIUM CHLORIDE 10 ML SYRINGE IV SCH ×3 (05:21→22:08)
[2019-09-30] MEDS: IBUPROFEN 200 MG TABLET PO PRN ×2 (05:21→15:46)
[2019-09-30 06:26] LABS: Basophils # (Auto) 0.04 K/mcL (0.00-0.30); Basophils % (Auto) 0.2 % (0.0-2.0); Eosinophils # (Auto) 0.03 K/mcL (0.00-0.70); Eosinophils % (Auto) 0.2 % (0.0-7.0); Granulocytes % (Auto) 83.5 % (38.0-78.0); Hematocrit 31.6 % (34.1-44.9); Lymphocytes # (Auto) 1.08 K/mcL (1.50-4.80); Lymphocytes % (Auto) 5.6 % (15.5-49.0); Mean Cell Volume 94.6 fL (80.0-100.0); Mean Corpuscular HGB Conc 34.8 g/dL (31.0-36.0); Mean Platelet Volume 10.5 fL (7.4-10.4); Monocytes # (Auto) 2.03 K/mcL (0.10-0.90); Monocytes % (Auto) 10.5 % (1.0-12.0); Platelet Count 165 K/mcL (140-440); RBC 3.34 M/mcL (3.59-5.38); Red Cell Distribution Width 12.6 % (11.5-14.5); WBC 19.3 K/mcL (4.50-11.00)
[2019-09-30 06:33] LABS: ALT/SGPT 20 U/l (0-40); AST/SGOT 23 U/l (0-37); Albumin 2.3 gm/dL (3.2-5.2); Albumin/Globulin Ratio 0.8 (1.0-2.3); Alkaline Phosphatase 203 U/L (39-117); Bilirubin,Direct 0.3 mg/dL (0.0-0.3); Bilirubin,Total 0.6 mg/dL (0.0-1.0); Blood Urea Nitrogen 14 mg/dl (6-20); Calcium 8.1 mg/dl (8.6-10.4); Carbon Dioxide 19 mmol/L (22-30); Chloride 103 mmol/L (96-108); Globulin 2.9 gm/dL (2.2-3.7); Glomerular Filtration Rate 90; Glucose 78 mg/dL (70-105); Lactate Dehydrogenase 287 U/L (94-250); Triglycerides 176 mg/dl (<150); Uric Acid 3.1 mg/dL (2.5-8.0)
[2019-09-30 06:36] LABS: Phosphorous 2.6 mg/dL (2.7-4.5)
[2019-09-30 06:50] LABS: Hepatitis B Surface Antibody NEGATIVE (NEGATIVE); Hepatitis B Surface Antigen NEGATIVE (NEGATIVE)
[2019-09-30] MEDS ORDERED: MAGNESIUM SULFATE 32.48 MEQ in DEXTROSE 5% IN WATER 50 ML IV ONE (06:53)
[2019-09-30] MEDS: FAMOTIDINE 20 MG TABLET PO SCH ×2 (08:23→20:08)
[2019-09-30] MEDS: NACL 0.9% W/KCL 20MEQ 1,000 ML IV SCH (08:24)
--- NOTE | 2019-09-30 10:54 | Infectious Disease Prog Note ---
Subjective Patient information: Note initiated : 09/30/19 at 10:53 am Service Date, if different from initiated Date: [] Patient: Tatiana Carrillo 24 y/o F admitted on 09/27/19 for Cold/Flu. Chief Complaint: [] Interval history: Pt doing 50% better. Denies any fever, chills, n/v today. Endorses constipation and difficulty passing gas (although able to pass gas). Mentions that appetite is improving, and she is coughing without any sputum (for 1st time after this illness began). Reports that right sided belly pain, chest pain are much better, and not present at rest. Objective Objective Narrative: ao x 3, in nad no thrush, normal dentition chest cta except for bronchial BS at right posterior lower 1/3 of lung and left lung base posteriorly s1 s2 normal, no m/r/g bs ++, abd is not distended, soft to touch with no rebound or guarding. Minimal tenderness (compared to yesterday) in RUQ. no CVA tenderness - Vital Signs Vital signs: Vital Signs Temp Pulse Pulse Resp BP BP Pulse Ox 09/30/19 08:00 36.4 C 110 H 20 130/75 95 09/30/19 02:57 37.2 C 98 H 20 124/82 96 09/29/19 22:54 37.1 C 105 H 20 110/63 96 09/29/19 19:33 36.7 C 102 H 20 112/69 96 09/29/19 16:00 38.7 C H 20 131/80 95 09/29/19 15:19 125 H 131/80 99 09/29/19 15:18 120 H 94 09/29/19 14:05 131/89 09/29/19 12:26 115/84 09/29/19 12:00 36.9 C 24 H 115/84 99 Intake and Output 09/29/19 09/30/19 09/30/19 21:59 05:59 13:59 Intake Total 2400 1450 1000 Output Total 700 400 Balance 1700 1050 1000 Intake: IV 1000 NaCl 0.9% W/KCl 20Meq 1000ML 1, 1000 000 ml @ 100 mls/hr IV .Q10H JENNIFER Rx#:[id number] Oral 2400 1450 Output: Void Amount 700 400 Other: Meal Lunch Percent of Meal Consumed 75% Feeding Ability Independent Urine Appearance Clear Sediment Urine Color Bright Yellow Bright Yellow Dark Yellow Urine Odor Normal # Voids 1 Weight 63.957 kg Intake & Output: Intake & Output 09/29/19 09/30/19 09/30/19 21:59 05:59 13:59 Intake Total 2400 1450 1000 Output Total 700 400 Balance 1700 1050 1000 Weight 63.957 kg Intake: IV 1000 NaCl 0.9% W/KCl 20Meq 1000ML 1, 1000 000 ml @ 100 mls/hr IV .Q10H JENNIFER Rx#:[id number] Oral 2400 1450 Output: Void Amount 700 400 Other: Meal Lunch Percent of Meal Consumed 75% Feeding Ability Independent Urine Appearance Clear Sediment Urine Color Bright Yellow Bright Yellow Dark Yellow Urine Odor Normal # Voids 1 - Lab 09/30/19 05:10 09/30/19 05:10 Most recent lab results Calcium 8.1 mg/dl (8.6-10.4) L 09/30/19 05:10 Phosphorus 2.6 mg/dL (2.7-4.5) L 09/30/19 05:10 Magnesium 1.5 mg/dL (1.6-2.5) L 09/30/19 05:10 Microbiology 09/28/19 18:26 Urine - Clean Void Mid-Stream Urine Culture - Final 09/27/19 19:35 Nasopharynx Respiratory Panel (PCR) - Final 09/27/19 19:35 Nasopharynx Respiratory Virus Panel (PCR) - Final 09/27/19 20:24 Nose MRSA (PCR) - Final Medications Active Medications: Acetaminophen (Tylenol) 650 mg PO Q6HP PRN; Protocol PRN Reason: Per Pain Protocol/Fever > 101 Hydrocodone Bitart/Acetaminophen (Cooks 5/325mg) 1 tab PO Q4HP PRN; Protocol PRN Reason: Per Pain Protocol Last Admin: 09/30/19 08:03 Dose: 1 tab Documented by: Admin: 09/30/19 03:05 Dose: 1 tab Documented by: Admin: 09/29/19 21:07 Dose: 1 tab Documented by: Admin: 09/29/19 18:15 Dose: 1 tab Documented by: Admin: 09/29/19 13:58 Dose: 1 tab Documented by: MARIA Cefepime HCl (Maxipime) 2 gm IV Q8H [facility]; Protocol Last Admin: 09/30/19 05:21 Dose: 2 gm Documented by: Admin: 09/29/19 21:53 Dose: 2 gm Documented by: Admin: 09/29/19 13:56 Dose: 2 gm Documented by: MARIA Famotidine (Pepcid) 20 mg PO BID [facility] Last Admin: 09/30/19 08:23 Dose: 20 mg Documented by: Admin: 09/29/19 21:53 Dose: 20 mg Documented by: STACY Potassium Chloride/Sodium Chloride (Nacl 0.9% W/Kcl 20meq 1000ml) 1,000 mls @ 100 mls/hr IV .Q10H [facility] Last Admin: 09/30/19 08:24 Dose: 100 mls/hr Documented by: Infusion: 09/30/19 07:07 Dose: 100 mls/hr Documented by: Admin: 09/29/19 21:07 Dose: 100 mls/hr Documented by: Admin: 09/29/19 15:51 Dose: Not Given Documented by: MARIA Non-Admin Reason: Duplicate Ibuprofen (Motrin) 200 mg PO Q4HP PRN; Protocol PRN Reason: Fever/Pain Last Admin: 09/30/19 05:21 Dose: 200 mg Documented by: Admin: 09/29/19 21:07 Dose: 200 mg Documented by: Admin: 09/29/19 15:55 Dose: 200 mg Documented by: MARIA Lactulose (Cephulac) 10 gm PO DAILYP PRN PRN Reason: Constipation Ondansetron HCl (Zofran) 4 mg IV Q4HP PRN; Protocol PRN Reason: Nausea And Vomiting Senna (Senokot) 2 tab PO HSP PRN PRN Reason: Constipation Sodium Chloride (Saline Flush) 10 ml IV Q8 [facility] Last Admin: 09/30/19 05:21 Dose: 10 ml Documented by: Admin: 09/29/19 22:20 Dose: Not Given Documented by: STACY Non-Admin Reason: Continuous IV Admin: 09/29/19 15:51 Dose: Not Given Documented by: MARIA Non-Admin Reason: Continuous IV Assessment and Plan - Narrative A/P Narrative: A: 1. Community acquired pneumonia: most likely pathogens could be Strept pneumoniae, Staph aureus. Given hyponatremia, LFT abnormalities, b/l infiltrates on CT raises concerns for Legionella. Rule out CoV 229E, NL63, HKU1 and OC43 2. B/l pyelonepheritis: in light of dysuria, increased freq and b/l flank pain - risk factors: young sexually active female - HIV serology neg, Mycoplasma IgM neg, blood Cx and urine Cx NGTD 3. Hepatomegaly: non tender today - could be hepatitis (Hep C neg, pt vaccinated for Hep A and B as a child). Since she has mildy elev GGT and ALP, MRCP could be considered to r/o any obstruction. 4. Constipation: no BM since admission, difficulty passing gas (although pt is able to do so) 5. History of Penicillin allergy as a young child: skin rash, without any systemic symptoms. hasnot recieved penicillin since then. - information regarding penicillin allergy testing shared with pt Based on quick response (clinical, downtrending WBCs) to IV antibiotics and IV fluids, neg RVP; I am suspecting bacterial pathogen as potential causes of pt's presentation, although would like to r/o viral co-infection with CoV HKU1, NL63, OC43 and 229E. The likely mechanism seems to be ascending UTI, with bacteremia and seeding of lungs. Recommendations: - Continue IV Cefepime 2 gm q8 hrs and IV Azithromycin 500 mg q24 hrs, day 3. If Cx negative, will plan for a 7 day course of antibiotics. will wait for further decline in WBCs and complete resolution of fever prior to discharge - Consider adding IV vancomycin if pt spikes a fever again, and repeat blood Cx - MRCP today to probe hepatomegaly with elev GGT and ALP - await testing for CoV 229E, NL63, HKU1 and OC43 - flu shot before discharge - constipation treatment per primary team. If it persists and pt unable to pass gas, she should be eval for intestinal obstruction (given her Hx of 4 abdominal laparoscopic surgeries) will follow Denis Alves MD Infectious diseases
--- NOTE | 2019-09-30 11:08 | Internal Med Progress Note ---
Medical - PN: Subj Patient information: Note initiated : 09/30/19 at 11:05 am Service Date, if different from initiated Date: [] Patient: Tatiana Carrillo 24 y/o F admitted on 09/27/19 for Cold/Flu. Chief Complaint: [] Interval history: Ms. Carrillo is a 24 year old F with past medical history of endometriosis, poss ible interstitial cystitis who presents to the emergency department with 6 days of illness. She states that she has had high fever, body aches, nausea and vomiting of bilious emesis for the first 4 days as well as a sore throat. She remains febrile, was 102 degrees in the emergency department. The body aches are ongoing and she still has a sore throat. In addition she is developed some chest pain in the lower sternal/right lower chest area with breathing. She has had no cough or sputum production. She does complain of a dry mouth. Today was the sixth day of symptoms and she presents for further evaluation. She has had no ill contacts. She has had no travel, no exposures to recent tr avelers. She did not get a flu shot. In the emergency department, she has significant leukocytosis, fever, tachycardia and tachypnea. Lactate is normal. She is in renal failure with creatinine of 1.8. Patient does note that she has been drinking fluids, particularly water to try to stay hydrated. She noticed her urine was a little dark yesterday. She is noticed no blood in her urine. Patient feeling a little better this morning. Still with significant right- sided sharp pain in the lower chest with inspiration. No cough, no sputum production. Good urine output. Has not felt feverish. 09/28 Patient continues to improve. White count down to 19,000. Still right upper quadrant/lower right chest discomfort. Continues to have no cough or sputum production. 09/29 Had fever yesterday mid afternoon, none since. Still with right upper quadrant discomfort and tenderness. White count static at 19,000, though clinically looks significantly improved from presentation. - Constitutional Vitals: Vital Signs Temp Pulse Resp BP Pulse Ox 97.5 F 110 H 20 130/75 95 09/30/19 08:00 09/30/19 08:00 09/30/19 08:00 09/30/19 08:00 09/30/19 08:00 Period Temp Pulse Resp BP Sys/Peña Pulse Ox Last 24 Hr 97.5 F-101.6 F 98-125 20-24 110-131/63-89 94-99 Intake and Output 09/29/19 09/30/19 09/30/19 21:59 05:59 13:59 Intake Total 2400 1450 1000 Output Total 700 400 Balance 1700 1050 1000 Weight 141 lb Intake & Output: Intake & Output 09/29/19 09/30/19 09/30/19 21:59 05:59 13:59 Intake Total 2400 1450 1000 Output Total 700 400 Balance 1700 1050 1000 Weight 141 lb Intake: IV 1000 NaCl 0.9% W/KCl 20Meq 1000ML 1, 1000 000 ml @ 100 mls/hr IV .Q10H JENNIFER Rx#:[id number] Oral 2400 1450 Output: Void Amount 700 400 Other: Meal Lunch Percent of Meal Consumed 75% Feeding Ability Independent Urine Appearance Clear Sediment Urine Color Bright Yellow Bright Yellow Dark Yellow Urine Odor Normal # Voids 1 Exam: General: In bed, no acute distress, nontoxic Chest: Diminished at bases bilaterally, no crackles. Respirations are unlabored Back: Mild left> right CVA tenderness Cardiovascular: Regular, no murmur, no edema Abdomen: Soft, mild right upper quadrant tenderness with palpation, no guarding, no rebound. Bowel sounds active Extremities: Warm, perfused, no rash Neuro: Alert, oriented x3, ambulatory Medical - PN: Obj Da - Labs CBC & Chem 7: 09/30/19 05:10 09/30/19 05:10 Labs: Abnormal Lab Results 09/30/19 09/30/19 09/29/19 05:10 05:10 04:51 WBC 19.3 H RBC 3.34 L Hgb 11.0 L Hct 31.6 L Plt Count MPV 10.5 H Gran % 83.5 H Lymph % (Auto) 5.6 L [place] % (Auto) Gran # 16.10 H Lymph # (Auto) 1.08 L [place] # (Auto) 2.03 H Sodium Potassium Chloride Carbon Dioxide 19 L BUN Creatinine Glucose Calcium 8.1 L 7.8 L Phosphorus 2.6 L Magnesium 1.5 L GGT 202 H 135 H AST Alkaline Phosphatase 203 H 152 H Lactate Dehydrogenase 287 H 375 H Total Protein 5.2 L 4.9 L Albumin 2.3 L 2.0 L Albumin/Globulin Ratio 0.8 L 0.7 L Triglycerides 176 H Urine Ketones Urine Occult Blood Ur Leukocyte Esterase 09/29/19 09/28/19 09/28/19 04:51 18:20 04:46 WBC 19.0 H RBC 3.15 L Hgb 10.3 L Hct 29.8 L Plt Count 133 L MPV 10.5 H Gran % 79.3 H Lymph % (Auto) 7.1 L [place] % (Auto) 13.0 H Gran # 15.09 H Lymph # (Auto) 1.36 L [place] # (Auto) 2.47 H Sodium 132 L Potassium 2.8 L* Chloride Carbon Dioxide 20 L BUN Creatinine 1.3 H Glucose 127 H 64 L Calcium 7.7 L 8.0 L Phosphorus 2.1 L 1.7 L Magnesium GGT 154 H 140 H AST Alkaline Phosphatase 182 H 203 H Lactate Dehydrogenase 345 H 382 H Total Protein 5.3 L 5.0 L Albumin 2.3 L 2.2 L Albumin/Globulin Ratio 0.8 L 0.8 L Triglycerides 182 H 373 H Urine Ketones Urine Occult Blood Ur Leukocyte Esterase 09/28/19 09/27/19 09/27/19 04:46 22:43 20:00 WBC 24.2 H RBC 3.28 L Hgb 10.8 L Hct 30.8 L Plt Count 132 L MPV 10.6 H Gran % 89.5 H Lymph % (Auto) 2.7 L [place] % (Auto) Gran # 21.64 H Lymph # (Auto) 0.65 L [place] # (Auto) 1.72 H Sodium 129 L 129 L Potassium Chloride Carbon Dioxide BUN Creatinine Glucose Calcium Phosphorus Magnesium GGT AST Alkaline Phosphatase Lactate Dehydrogenase Total Protein Albumin Albumin/Globulin Ratio Triglycerides Urine Ketones Urine Occult Blood Ur Leukocyte Esterase 09/27/19 09/27/19 09/27/19 19:47 15:25 15:25 WBC 25.5 H RBC 3.52 L Hgb Hct 32.8 L Plt Count 139 L MPV 11.0 H Gran % 90.7 H Lymph % (Auto) 2.1 L [place] % (Auto) Gran # 23.09 H Lymph # (Auto) 0.54 L [place] # (Auto) 1.62 H Sodium 123 L Potassium 3.1 L Chloride 87 L Carbon Dioxide 20 L BUN 21 H Creatinine 1.8 H Glucose Calcium 8.4 L Phosphorus Magnesium GGT AST 39 H Alkaline Phosphatase 145 H Lactate Dehydrogenase Total Protein Albumin 2.7 L Albumin/Globulin Ratio 0.8 L Triglycerides Urine Ketones 5/tr A Urine Occult Blood 0.03 A Ur Leukocyte Esterase 25 A Meds: Medications Acetaminophen (Tylenol) 650 mg PO Q6HP PRN; Protocol PRN Reason: Per Pain Protocol/Fever > 101 Hydrocodone Bitart/Acetaminophen ([place]agland 5/325mg) 1 tab PO Q4HP PRN; Protocol PRN Reason: Per Pain Protocol Last Admin: 09/30/19 08:03 Dose: 1 tab Documented by: Cefepime HCl (Maxipime) 2 gm IV Q8H [facility]; Protocol Last Admin: 09/30/19 05:21 Dose: 2 gm Documented by: Famotidine (Pepcid) 20 mg PO BID [facility] Last Admin: 09/30/19 08:23 Dose: 20 mg Documented by: Potassium Chloride/Sodium Chloride (Nacl 0.9% W/Kcl 20meq 1000ml) 1,000 mls @ 100 mls/hr IV .Q10H [facility] Last Admin: 09/30/19 08:24 Dose: 100 mls/hr Documented by: Ibuprofen (Motrin) 200 mg PO Q4HP PRN; Protocol PRN Reason: Fever/Pain Last Admin: 09/30/19 05:21 Dose: 200 mg Documented by: Lactulose (Cephulac) 10 gm PO DAILYP PRN PRN Reason: Constipation Ondansetron HCl (Zofran) 4 mg IV Q4HP PRN; Protocol PRN Reason: Nausea And Vomiting Senna (Senokot) 2 tab PO HSP PRN PRN Reason: Constipation Sodium Chloride (Saline Flush) 10 ml IV Q8 [facility] Last Admin: 09/30/19 05:21 Dose: 10 ml Documented by: Medical - PN: A/P - Time Spent With Patient Total time spent is greater than 50% in coordination of care (as documented) at patient's floor/unit and/or counseling patient: Greater than 35 minutes - Narrative A/P Narrative: 24-year-old female presenting with fever, leukocytosis, tachycardia and tachypnea with normal lactate. Has right lower lobe infiltrate. #Sepsis. Suspected source now pyelonephritis, as well as pneumonia. Possibly started as lower urinary tract infection with Alok, bacteremia leading to pneumonia. Sepsis as noted by tachypnea, tachycardia, leukocytosis and fever. Lactate was normal, not severe sepsis or septic shock. Initial mild right lower lobe infiltrate on radiograph, is worsened with hydration. Also with findings on CT for right greater than left bilateral pyelonephritis. That may explain her persistent fevers and slow to respond white count. White count, tachycardia improving with therapy. RVP both negative. Monospot negative. Urinary pneumococcal antigen, serum mycoplasma are negative. #Right upper quadrant tenderness. Initially thought pleuritic secondary to pneumonia, though now appears to be hepatic. Does have hepatomegaly on CT and mild abnormalities in alkaline phosphatase and GGT with normal transaminases and bilirubin. HIV and hep C screen negative. Vaccinated for hep A and B. #Acute renal failure. Improving/resolving. Creatinine was 1.8 at presentation, now down to 0.9. Possibly representing prerenal, initially ATN thought possib ility and fractional excretion of sodium was 1.9%, but rapid recovery suggested was prerenal. #Hyponatremia. Resolved. Serum sodium 123 at presentation. The patient has been drinking a lot of water to try to stay hydrated, this may represent more of a polydipsia. #Hypokalemia, possibly from GI losses and poor intake. Plan: Continue with cefepime and azithromycin (changed to cefepime yesterday afternoon) ID consultation, discussed with Dr. Alves, appreciate input Continue to follow white count Follow-up Legionella urinary antigen Saline lock Replete potassium as needed Check blood cultures, apparently were not obtained in the ED, follow-up Check MRCP given right upper quadrant pain and alk phos and GGT abnormalities PPx: SCD's Full code Medical - PN: Qual - VTE Deep Vein Thrombosis/Pulmonary Embolism Present on Admission: No
[2019-09-30] MEDS ORDERED: LORazepam 0.5 MG TABLET PO ONE (11:58)
--- NOTE | 2019-09-30 13:06 | Internal Med Progress Note ---
Medical - PN: Subj Patient information: Note initiated : 09/30/19 at 1:04 pm Service Date, if different from initiated Date: [] Patient: Tatiana Carrillo 24 y/o F admitted on 09/27/19 for Cold/Flu. Chief Complaint: [] Interval history: Ms. Carrillo is a 24 year old F with past medical history of endometriosis, poss ible interstitial cystitis who presents to the emergency department with 6 days of illness. She states that she has had high fever, body aches, nausea and vomiting of bilious emesis for the first 4 days as well as a sore throat. She remains febrile, was 102 degrees in the emergency department. The body aches are ongoing and she still has a sore throat. In addition she is developed some chest pain in the lower sternal/right lower chest area with breathing. She has had no cough or sputum production. She does complain of a dry mouth. Today was the sixth day of symptoms and she presents for further evaluation. She has had no ill contacts. She has had no travel, no exposures to recent tr avelers. She did not get a flu shot. In the emergency department, she has significant leukocytosis, fever, tachycardia and tachypnea. Lactate is normal. She is in renal failure with creatinine of 1.8. Patient does note that she has been drinking fluids, particularly water to try to stay hydrated. She noticed her urine was a little dark yesterday. She is noticed no blood in her urine. Patient feeling a little better this morning. Still with significant right- sided sharp pain in the lower chest with inspiration. No cough, no sputum production. Good urine output. Has not felt feverish. 09/28 Patient continues to improve. White count down to 19,000. Still right upper quadrant/lower right chest discomfort. Continues to have no cough or sputum production. 09/29 Had fever yesterday mid afternoon, none since. Still with right upper quadrant discomfort and tenderness. White count static at 19,000, though clinically looks significantly improved from presentation. - Constitutional Vitals: Vital Signs Temp Pulse Resp BP Pulse Ox 95.7 F L 86 20 125/72 97 09/30/19 12:00 09/30/19 12:09/30/19 12:09/30/19 12:09/30/19 12:00 Period Temp Pulse Resp BP Sys/Peña Pulse Ox Last 24 Hr 95.7 F-101.6 F 86-125 20-20 110-131/63-89 94-99 Intake and Output 09/29/19 09/30/19 09/30/19 21:59 05:59 13:59 Intake Total 2400 1450 1000 Output Total 700 400 Balance 1700 1050 1000 Weight 63.957 kg Intake & Output: Intake & Output 09/29/19 09/30/19 09/30/19 21:59 05:59 13:59 Intake Total 2400 1450 1000 Output Total 700 400 Balance 1700 1050 1000 Weight 63.957 kg Intake: IV 1000 NaCl 0.9% W/KCl 20Meq 1000ML 1, 1000 000 ml @ 100 mls/hr IV .Q10H JENNIFER Rx#:[id number] Oral 2400 1450 Output: Void Amount 700 400 Other: Meal Lunch Percent of Meal Consumed 75% Feeding Ability Independent Urine Appearance Clear Sediment Urine Color Bright Yellow Bright Yellow Dark Yellow Urine Odor Normal # Voids 1 Exam: General: Alert, Awake, No acute Distress Eyes/N/T: EOMI, Head/Neck: neck supple, CV: dimished b/l, No murmurs, Pulm: Clear b/l, no wheezing/rhonchi/rales Abd: soft, , +BS x4 Ext: no clubbing/cyanosis/edema Neuro: Alert, no focal deficits, moves all extremities, Skin: warm/dry Medical - PN: Obj Da - Labs CBC & Chem 7: 09/30/19 05:10 09/30/19 05:10 Labs: Abnormal Lab Results 09/30/19 09/30/19 09/29/19 05:10 05:10 04:51 WBC 19.3 H RBC 3.34 L Hgb 11.0 L Hct 31.6 L Plt Count MPV 10.5 H Gran % 83.5 H Lymph % (Auto) 5.6 L [place] % (Auto) Gran # 16.10 H Lymph # (Auto) 1.08 L [place] # (Auto) 2.03 H Sodium Potassium Chloride Carbon Dioxide 19 L BUN Creatinine Glucose Calcium 8.1 L 7.8 L Phosphorus 2.6 L Magnesium 1.5 L GGT 202 H 135 H AST Alkaline Phosphatase 203 H 152 H Lactate Dehydrogenase 287 H 375 H Total Protein 5.2 L 4.9 L Albumin 2.3 L 2.0 L Albumin/Globulin Ratio 0.8 L 0.7 L Triglycerides 176 H Urine Ketones Urine Occult Blood Ur Leukocyte Esterase 09/29/19 09/28/19 09/28/19 04:51 18:20 04:46 WBC 19.0 H RBC 3.15 L Hgb 10.3 L Hct 29.8 L Plt Count 133 L MPV 10.5 H Gran % 79.3 H Lymph % (Auto) 7.1 L [place] % (Auto) 13.0 H Gran # 15.09 H Lymph # (Auto) 1.36 L [place] # (Auto) 2.47 H Sodium 132 L Potassium 2.8 L* Chloride Carbon Dioxide 20 L BUN Creatinine 1.3 H Glucose 127 H 64 L Calcium 7.7 L 8.0 L Phosphorus 2.1 L 1.7 L Magnesium GGT 154 H 140 H AST Alkaline Phosphatase 182 H 203 H Lactate Dehydrogenase 345 H 382 H Total Protein 5.3 L 5.0 L Albumin 2.3 L 2.2 L Albumin/Globulin Ratio 0.8 L 0.8 L Triglycerides 182 H 373 H Urine Ketones Urine Occult Blood Ur Leukocyte Esterase 09/28/19 09/27/19 09/27/19 04:46 22:43 20:00 WBC 24.2 H RBC 3.28 L Hgb 10.8 L Hct 30.8 L Plt Count 132 L MPV 10.6 H Gran % 89.5 H Lymph % (Auto) 2.7 L [place] % (Auto) Gran # 21.64 H Lymph # (Auto) 0.65 L [place] # (Auto) 1.72 H Sodium 129 L 129 L Potassium Chloride Carbon Dioxide BUN Creatinine Glucose Calcium Phosphorus Magnesium GGT AST Alkaline Phosphatase Lactate Dehydrogenase Total Protein Albumin Albumin/Globulin Ratio Triglycerides Urine Ketones Urine Occult Blood Ur Leukocyte Esterase 09/27/19 09/27/19 09/27/19 19:47 15:25 15:25 WBC 25.5 H RBC 3.52 L Hgb Hct 32.8 L Plt Count 139 L MPV 11.0 H Gran % 90.7 H Lymph % (Auto) 2.1 L [place] % (Auto) Gran # 23.09 H Lymph # (Auto) 0.54 L [place] # (Auto) 1.62 H Sodium 123 L Potassium 3.1 L Chloride 87 L Carbon Dioxide 20 L BUN 21 H Creatinine 1.8 H Glucose Calcium 8.4 L Phosphorus Magnesium GGT AST 39 H Alkaline Phosphatase 145 H Lactate Dehydrogenase Total Protein Albumin 2.7 L Albumin/Globulin Ratio 0.8 L Triglycerides Urine Ketones 5/tr A Urine Occult Blood 0.03 A Ur Leukocyte Esterase 25 A Meds: Medications Acetaminophen (Tylenol) 650 mg PO Q6HP PRN; Protocol PRN Reason: Per Pain Protocol/Fever > 101 Hydrocodone Bitart/Acetaminophen ([place] 5/325mg) 1 tab PO Q4HP PRN; Protocol PRN Reason: Per Pain Protocol Last Admin: 09/30/19 12:53 Dose: 1 tab Documented by: Cefepime HCl (Maxipime) 2 gm IV Q8H JENNIFER; Protocol Last Admin: 09/30/19 05:21 Dose: 2 gm Documented by: Famotidine (Pepcid) 20 mg PO BID JENNIFER Last Admin: 09/30/19 08:23 Dose: 20 mg Documented by: Ibuprofen (Motrin) 200 mg PO Q4HP PRN; Protocol PRN Reason: Fever/Pain Last Admin: 09/30/19 05:21 Dose: 200 mg Documented by: Lactulose (Cephulac) 10 gm PO DAILYP PRN PRN Reason: Constipation Ondansetron HCl (Zofran) 4 mg IV Q4HP PRN; Protocol PRN Reason: Nausea And Vomiting Senna (Senokot) 2 tab PO HSP PRN PRN Reason: Constipation Sodium Chloride (Saline Flush) 10 ml IV Q8 JENNIFER Last Admin: 09/30/19 05:21 Dose: 10 ml Documented by: Medical - PN: A/P - Time Spent With Patient Total time spent is greater than 50% in coordination of care (as documented) at patient's floor/unit and/or counseling patient: - Narrative A/P Narrative: A: *Sepsis: Suspected source now pyelonephritis, as well as pneumonia. -Possibly started as lower urinary tract infection with Alok, bacteremia leading to pneumonia. -Lactate was normal, not severe sepsis or septic shock. Monospot negative. Urinary pneumococcal antigen, serum mycoplasma are negative. *RUQ tenderness: Initially thought pleuritic secondary to pneumonia, though now appears to be hepatic. -Does have hepatomegaly on CT and mild abnormalities in alkaline phosphatase and GGT with normal transaminases and bilirubin. -HIV and hep C screen negative. Vaccinated for hep A and B. *NAVARRO: Improving/resolving. Creatinine was 1.8 at presentation, now down to 0.9. Likely prerenal *Hyponatremia: Resolved. Serum sodium 123 at presentation. -The patient has been drinking a lot of water to try to stay hydrated, this may represent more of a polydipsia. #Hypokalemia/mag: Plan: Continue with cefepime and azithromycin (changed to cefepime yesterday a fternoon) ID consultation, discussed with Dr. Alves, appreciate input -Check MRCP given right upper quadrant pain and alk phos and GGT abnormalities Check blood cultures, apparently were not obtained in the ED, follow-up Continue to follow white count Follow-up Legionella urinary antigen Replete potassium/mag as needed -PPx: SCD's Medical - PN: Qual - VTE Deep Vein Thrombosis/Pulmonary Embolism Present on Admission: No
[2019-09-30 15:36] LABS: Band Neutrophils % 3 % (0-10); Lymphocytes % 5 % (15-49); Monocytes % (Manual) 9 % (1-12); Platelet Estimate NORMAL (NORMAL); RBC Morphology NORMAL (NORMAL); Segmented Neutrophils % 83 % (38-78)
[2019-09-30] MEDS: ACETAMINOPHEN 325 MG TABLET PO PRN (17:01)
--- NOTE | 2019-09-30 17:27 | Magnetic Resonance Report ---
History: Abnormal elevated liver enzymes, pyelonephritis, pulmonary infiltrates TECHNIQUE: Multiplanar imaging was performed using multiple pulse sequences. 13 mL MultiHance contrast was injected and multiphasic postcontrast T1-weighted views were obtained. MRCP images were also acquired. FINDINGS: There is involuntary patient motion artifact on most of the pulse sequences. Patient has small bilateral pleural effusions, right greater than left. These have not changed significantly since a prior CT done on 09/28/19. The liver is mildly enlarged. The right lobe is 22 cm in craniocaudal dimension. Liver parenchyma appears homogeneous. There is no evidence of a liver mass. Normal blood flow is seen in the hepatic veins. There may be partial thrombosis of the portal vein, within the bubba hepatis. Gallbladder is normal with no stones or thickening of the wall. The intra and extrahepatic bile ducts are normal in caliber with the common bile duct measuring approximately 3 mm in size. The spleen is normal in size and homogeneous. No abnormality seen within the pancreas. Both kidneys are very heterogeneous. There is diffuse involvement throughout the right kidney and relative sparing of the upper portion of the left kidney. No perinephric abscess is present and there is no hydronephrosis. Patient has no ascites The aorta is normal in caliber. There is a large amount stool in the colon. The small bowel cannot be evaluated. IMPRESSION: Hepatomegaly of undetermined etiology. Severe bilateral pyelonephritis, unchanged from the recent abdomen CT done on 09/28/19 Bilateral pleural effusions, right greater than left. Linear filling defect in the portal vein which may represent partial thrombosis The results were discussed with Dr. Alves Interpreted and Authenticated by: El Norman 09/30/19
[2019-09-30] MEDS ORDERED: LORazepam 2 MG/ML VIAL IV ONE ×2 (18:33→20:00)
[2019-09-30] MEDS ORDERED: LORazepam 2 MG/ML VIAL ONE (18:48)
--- NOTE | 2019-09-30 19:15 | Ultrasound Report ---
History: Hepatomegaly, elevated liver enzymes and possible portal vein thrombosis seen on the preceding MRI FINDINGS: The liver is enlarged but relatively homogeneous. No discrete mass is present. The portal vein measures up to 1.1 cm in diameter and has normal blood flow within it. There is no portal vein thrombosis. Splenic vein is also normal. The hepatic veins and inferior vena cava are normal caliber and have normal blood flow, without evidence of a mass or venous thrombosis. Incidentally noted are bilateral pleural effusions. The cortex and right kidney is echogenic. Patient has known pyelonephritis. IMPRESSION: No evidence of portal vein or hepatic vein thrombosis Hepatomegaly Dr. Alves and Dr. Cheung were called with the results Interpreted and Authenticated by: El Norman 09/30/19
[2019-09-30] MEDS: AZITHROMYCIN 250 MG TABLET PO SCH (20:08)
[2019-09-30] MEDS: LINEZOLID 600 MG TABLET PO SCH (20:08)
[2019-09-30] MEDS ORDERED: hydrOXYzine 25 MG TABLET PO PRN (21:00)
[2019-10-01] MEDS: HYDROcodone/APAP 5/325MG TABLET PO PRN ×5 (03:13→19:57)
[2019-10-01] MEDS: IBUPROFEN 200 MG TABLET PO PRN (06:44)
[2019-10-01] MEDS: CEFEPIME 2 GM VIAL IV SCH ×3 (06:45→22:14)
[2019-10-01] MEDS: 0.9 % SODIUM CHLORIDE 10 ML SYRINGE IV SCH ×3 (06:45→22:14)
--- NOTE | 2019-10-01 07:03 | Internal Med Progress Note ---
Medical - PN: Subj Patient information: Note initiated : 10/01/19 at 6:58 am Service Date, if different from initiated Date: [] Patient: Tatiana Carrillo 24 y/o F admitted on 09/27/19 for Cold/Flu. Chief Complaint: [] Interval history: Ms. Carrillo is a 24 year old F with past medical history of endometriosis, poss ible interstitial cystitis who presents to the emergency department with 6 days of illness. She states that she has had high fever, body aches, nausea and vomiting of bilious emesis for the first 4 days as well as a sore throat. She remains febrile, was 102 degrees in the emergency department. The body aches are ongoing and she still has a sore throat. In addition she is developed some chest pain in the lower sternal/right lower chest area with breathing. She has had no cough or sputum production. She does complain of a dry mouth. Today was the sixth day of symptoms and she presents for further evaluation. She has had no ill contacts. She has had no travel, no exposures to recent tr avelers. She did not get a flu shot. In the emergency department, she has significant leukocytosis, fever, tachycardia and tachypnea. Lactate is normal. She is in renal failure with creatinine of 1.8. Patient does note that she has been drinking fluids, particularly water to try to stay hydrated. She noticed her urine was a little dark yesterday. She is noticed no blood in her urine. Patient feeling a little better this morning. Still with significant right- sided sharp pain in the lower chest with inspiration. No cough, no sputum production. Good urine output. Has not felt feverish. 09/28 Patient continues to improve. White count down to 19,000. Still right upper quadrant/lower right chest discomfort. Continues to have no cough or sputum production. 09/29 Had fever yesterday mid afternoon, none since. Still with right upper quadrant discomfort and tenderness. White count static at 19,000, though clinically looks significantly improved from presentation. 3/3 Feeling much better today. Has good appetite. Swelling in her hands and feet improving. Abdominal discomfort much improved. Occasional cough Review of Systems: denies headache/fever/chills/nausea/vomiting/dyspnea/diarrhea. Otherwise see above. - Constitutional Vitals: Vital Signs Temp Pulse Resp BP Pulse Ox 102.1 F H 109 H 30 H 131/77 92 10/01/19 04:40 10/01/19 03:13 10/01/19 03:13 10/01/19 03:13 10/01/19 03:13 Period Temp Pulse Resp BP Sys/Peña Pulse Ox Last 24 Hr 95.7 F-102.9 F 76-110 16-30 110-132/68-78 92-97 Intake and Output 09/30/19 10/01/19 10/01/19 21:59 05:59 13:59 Intake Total 108 700 Balance 108 700 Weight 62.686 kg Intake & Output: Intake & Output 09/30/19 10/01/19 10/01/19 21:59 05:59 13:59 Intake Total 108 700 Balance 108 700 Weight 62.686 kg Intake: IV 108 Magnesium Sulfate 32.48 Meq In 108 Dextrose 5% in Water 50 ml @ 58 mls/hr IV ONCE ONE Rx#: [id number] Oral 700 Other: Meal Dinner Percent of Meal Consumed 25% Feeding Ability Independent Stool Size Moderate Stool Color Brown Stool Consistency Formed # Voids 2 1 Exam: General: Alert, Awake, No acute Distress Eyes/N/T: EOMI, Head/Neck: neck supple, CV: RRR, 1/6 SM Pulm: Clear b/l, no wheezing/rhonchi/rales Abd: soft, mild TTP RUQ, +BS x4 Ext: no clubbing/cyanosis/edema Neuro: Alert, no focal deficits, moves all extremities, Skin: warm/dry Medical - PN: Obj Da - Labs CBC & Chem 7: 10/01/19 05:40 10/01/19 05:40 Labs: Abnormal Lab Results 09/30/19 09/30/19 09/30/19 13:37 05:10 05:10 WBC 19.3 H RBC 3.34 L Hgb 11.0 L Hct 31.6 L Plt Count MPV 10.5 H Gran % 83.5 H Lymph % (Auto) 5.6 L [place] % (Auto) Gran # 16.10 H Lymph # (Auto) 1.08 L [place] # (Auto) 2.03 H Seg Neutrophils % 83 H Lymphocytes % 5 L Sodium Potassium Carbon Dioxide 19 L Creatinine Glucose Calcium 8.1 L Phosphorus 2.6 L Magnesium 1.5 L GGT 202 H Alkaline Phosphatase 203 H Lactate Dehydrogenase 287 H Total Protein 5.2 L Albumin 2.3 L Albumin/Globulin Ratio 0.8 L Triglycerides 176 H 09/29/19 09/29/19 09/28/19 04:51 04:51 18:20 WBC 19.0 H RBC 3.15 L Hgb 10.3 L Hct 29.8 L Plt Count 133 L MPV 10.5 H Gran % 79.3 H Lymph % (Auto) 7.1 L [place] % (Auto) 13.0 H Gran # 15.09 H Lymph # (Auto) 1.36 L [place] # (Auto) 2.47 H Seg Neutrophils % Lymphocytes % Sodium Potassium Carbon Dioxide Creatinine Glucose 127 H Calcium 7.8 L 7.7 L Phosphorus 2.1 L Magnesium GGT 135 H 154 H Alkaline Phosphatase 152 H 182 H Lactate Dehydrogenase 375 H 345 H Total Protein 4.9 L 5.3 L Albumin 2.0 L 2.3 L Albumin/Globulin Ratio 0.7 L 0.8 L Triglycerides 182 H 09/28/19 09/28/19 04:46 04:46 WBC 24.2 H RBC 3.28 L Hgb 10.8 L Hct 30.8 L Plt Count 132 L MPV 10.6 H Gran % 89.5 H Lymph % (Auto) 2.7 L [place] % (Auto) Gran # 21.64 H Lymph # (Auto) 0.65 L [place] # (Auto) 1.72 H Seg Neutrophils % Lymphocytes % Sodium 132 L Potassium 2.8 L* Carbon Dioxide 20 L Creatinine 1.3 H Glucose 64 L Calcium 8.0 L Phosphorus 1.7 L Magnesium GGT 140 H Alkaline Phosphatase 203 H Lactate Dehydrogenase 382 H Total Protein 5.0 L Albumin 2.2 L Albumin/Globulin Ratio 0.8 L Triglycerides 373 H Meds: Medications Acetaminophen (Tylenol) 650 mg PO Q6HP PRN; Protocol PRN Reason: Per Pain Protocol/Fever > 101 Last Admin: 09/30/19 17:01 Dose: 650 mg Documented by: Hydrocodone Bitart/Acetaminophen ([place] 5/325mg) 1 tab PO Q4HP PRN; Protocol PRN Reason: Per Pain Protocol Last Admin: 10/01/19 03:13 Dose: 1 tab Documented by: Azithromycin (Zithromax) 500 mg PO DAILY JENNIFER; Protocol Stop: 10/03/19 09:01 Last Admin: 09/30/19 20:08 Dose: 500 mg Documented by: Cefepime HCl (Maxipime) 2 gm IV Q8H JENNIFER; Protocol Last Admin: 10/01/19 06:45 Dose: 2 gm Documented by: Famotidine (Pepcid) 20 mg PO BID [facility] Last Admin: 09/30/19 20:08 Dose: 20 mg Documented by: Ibuprofen (Motrin) 200 mg PO Q4HP PRN; Protocol PRN Reason: Fever/Pain Last Admin: 10/01/19 06:44 Dose: 200 mg Documented by: Lactulose (Cephulac) 10 gm PO DAILYP PRN PRN Reason: Constipation Linezolid (Zyvox) 600 mg PO Q12 JENNIFER; Protocol Last Admin: 09/30/19 20:08 Dose: 600 mg Documented by: Ondansetron HCl (Zofran) 4 mg IV Q4HP PRN; Protocol PRN Reason: Nausea And Vomiting Senna (Senokot) 2 tab PO HSP PRN PRN Reason: Constipation Sodium Chloride (Saline Flush) 10 ml IV Q8 JENNIFER Last Admin: 10/01/19 06:45 Dose: 10 ml Documented by: Medical - PN: A/P - Time Spent With Patient Total time spent is greater than 50% in coordination of care (as documented) at patient's floor/unit and/or counseling patient: - Narrative A/P Narrative: A: *Sepsis/Fever: Suspected source now pyelonephritis, as well as pneumonia. -Possibly started as lower urinary tract infection with Pyelo, bacteremia leading to pneumonia. -Lactate was normal, not severe sepsis or septic shock. Monospot negative. Urinary pneumococcal antigen, serum mycoplasma are negative. -BC nec thus far -Tmax 102.9 last night -leukocytosis slowly improving *Hepatomagaly: ?etiology - ?above vs viral -AST/ALT/bili ok, ALP/GGT mildly elevated -HIV and hep C screen negative. Vaccinated for hep A and B. -MRI unrevealing *NAVARRO: Improving/resolving. Creatinine was 1.8 at presentation, now down to 0.9. Likely prerenal *Hyponatremia: Resolved. Serum sodium 123 at presentation. -The patient has been drinking a lot of water to try to stay hydrated, this may represent more of a polydipsia. #Hypokalemia/mag: Plan: Continue with cefepime and azithromycin dr. Alves following pending BC Continue to follow white count Follow-up Legionella urinary antigen free water restrict Replete potassium/mag as needed -f/u with PCP/GI regarding hepatomegaly -PPx: SCD's Medical - PN: Qual - VTE Deep Vein Thrombosis/Pulmonary Embolism Present on Admission: No
[2019-10-01 07:23] LABS: Basophils # (Auto) 0.03 K/mcL (0.00-0.30); Basophils % (Auto) 0.2 % (0.0-2.0); Eosinophils # (Auto) 0.01 K/mcL (0.00-0.70); Eosinophils % (Auto) 0.1 % (0.0-7.0); Granulocytes % (Auto) 85.1 % (38.0-78.0); Hematocrit 30.6 % (34.1-44.9); Hemoglobin 10.6 g/dL (11.2-15.7); Lymphocytes # (Auto) 1.14 K/mcL (1.50-4.80); Lymphocytes % (Auto) 6.3 % (15.5-49.0); Mean Cell Volume 94.2 fL (80.0-100.0); Mean Corpuscular HGB Conc 34.6 g/dL (31.0-36.0); Monocytes # (Auto) 1.51 K/mcL (0.10-0.90); Monocytes % (Auto) 8.3 % (1.0-12.0); Platelet Count 194 K/mcL (140-440); RBC 3.25 M/mcL (3.59-5.38); Red Cell Distribution Width 12.6 % (11.5-14.5); WBC 18.1 K/mcL (4.50-11.00)
[2019-10-01 07:44] LABS: ALT/SGPT 19 U/l (0-40); AST/SGOT 24 U/l (0-37); Albumin 2.4 gm/dL (3.2-5.2); Albumin/Globulin Ratio 0.9 (1.0-2.3); Alkaline Phosphatase 188 U/L (39-117); Bilirubin,Direct 0.2 mg/dL (0.0-0.3); Bilirubin,Total 0.6 mg/dL (0.0-1.0); Blood Urea Nitrogen 10 mg/dl (6-20); Calcium 7.8 mg/dl (8.6-10.4); Carbon Dioxide 19 mmol/L (22-30); Chloride 100 mmol/L (96-108); Globulin 2.6 gm/dL (2.2-3.7); Glomerular Filtration Rate 104; Glucose 87 mg/dL (70-105); Lactate Dehydrogenase 258 U/L (94-250); Phosphorous 2.7 mg/dL (2.7-4.5); Triglycerides 168 mg/dl (<150); Uric Acid 2.8 mg/dL (2.5-8.0)
[2019-10-01] MEDS ORDERED: AZITHROMYCIN 250 MG TABLET PO SCH (09:00)
[2019-10-01] MEDS: FAMOTIDINE 20 MG TABLET PO SCH ×2 (09:11→22:12)
[2019-10-01] MEDS: AZITHROMYCIN 250 MG TABLET PO SCH ×2 (09:11→17:14)
[2019-10-01] MEDS: LINEZOLID 600 MG TABLET PO SCH ×2 (09:11→22:12)
[2019-10-01] MEDS ORDERED: LORazepam 2 MG/ML VIAL IV ONE (09:53)
[2019-10-01] MEDS ORDERED: FUROSEMIDE 20 MG TABLET PO ONE (11:44)
[2019-10-01] MEDS: LORazepam 1 MG TABLET PO PRN ×2 (11:50→19:57)
[2019-10-01] MEDS: ACETAMINOPHEN 325 MG TABLET PO PRN (17:13)
[2019-10-01] MEDS ORDERED: MAG HYDROX/AL HYDROX/SIMETH 30 ML ORAL.SUSP PO PRN (19:05)
[2019-10-01] MEDS ORDERED: CALCIUM CARBONATE 500 MG TAB.CHEW CHEWED PRN (19:05)
--- NOTE | 2019-10-01 20:50 | Infectious Disease Prog Note ---
Subjective Patient information: Note initiated : 10/01/19 at 8:20 pm Service Date, if different from initiated Date: [] Patient: Tatiana Carrillo 24 y/o F admitted on 09/27/19 for Cold/Flu. Chief Complaint: [] Interval history: Pt doing same as yesterday. had fevers last night as high as 39.4C. Had a BM last evening. Discussed with pt about need for SARS-Coroavirus testing. Pt expressed extreme displeasure but after talking and discussing with her father; agreed to get tested. She was inappropriate in her verbage, threatened to leave AMA but after counseling changed her mind. Objective Objective Narrative: ao x 3, in nad no thrush, normal dentition chest cta except for minimal bronchial BS at right posterior lower lung base and left lung base posteriorly s1 s2 normal, no m/r/g bs ++, abd is not distended, soft to touch with no rebound or guarding. No tenderness in RUQ. no CVA tenderness - Vital Signs Vital signs: Vital Signs Temp Pulse Pulse Resp BP BP Pulse Ox 10/01/19 19:58 37.7 C H 104 H 24 H 110/78 94 10/01/19 17:13 38.6 C H 10/01/19 16:00 38.6 C H 105 H 19 122/80 93 10/01/19 12:00 36.4 C 96 H 18 132/78 93 10/01/19 08:00 36.8 C 81 16 114/70 98 10/01/19 04:40 38.9 C H 10/01/19 03:13 39.4 C H 109 H 30 H 131/77 92 09/30/19 23:00 37.1 C 88 24 H 110/78 Intake and Output 10/01/19 10/01/19 10/01/19 05:59 13:59 21:59 Intake Total 700 750 Balance 700 750 Intake: Oral 700 GI Tube Flush 750 Other: Meal Breakfast Percent of Meal Consumed 100% # Voids 1 Intake & Output: Intake & Output 10/01/19 10/01/19 10/01/19 05:59 13:59 21:59 Intake Total 700 750 Balance 700 750 Intake: Oral 700 GI Tube Flush 750 Other: Meal Breakfast Percent of Meal Consumed 100% # Voids 1 - Lab 10/02/19 07:05 10/02/19 07:05 Most recent lab results Calcium 7.8 mg/dl (8.6-10.4) L 10/01/19 05:40 Phosphorus 2.7 mg/dL (2.7-4.5) 10/01/19 05:40 Magnesium 1.6 mg/dL (1.6-2.5) 10/01/19 05:40 Microbiology 09/30/19 17:50 Blood Blood Culture - Preliminary 09/30/19 17:58 Blood Blood Culture - Preliminary 09/29/19 12:20 Blood Blood Culture - Preliminary 09/29/19 12:50 Blood Blood Culture - Preliminary 09/28/19 18:26 Urine - Clean Void Mid-Stream Urine Culture - Final 09/27/19 19:35 Nasopharynx Respiratory Panel (PCR) - Final 09/27/19 19:35 Nasopharynx Respiratory Virus Panel (PCR) - Final 09/27/19 20:24 Nose MRSA (PCR) - Final Medications Active Medications: Acetaminophen (Tylenol) 650 mg PO Q6HP PRN; Protocol PRN Reason: Per Pain Protocol/Fever > 101 Last Admin: 10/01/19 17:13 Dose: 650 mg Documented by: Admin: 09/30/19 17:01 Dose: 650 mg Documented by: AARON Hydrocodone Bitart/Acetaminophen ([place] 5/325mg) 1 tab PO Q4HP PRN; Protocol PRN Reason: Per Pain Protocol Last Admin: 10/01/19 19:57 Dose: 1 tab Documented by: Admin: 10/01/19 16:33 Dose: 1 tab Documented by: Admin: 10/01/19 11:50 Dose: 1 tab Documented by: Admin: 10/01/19 07:13 Dose: 1 tab Documented by: Admin: 10/01/19 03:13 Dose: 1 tab Documented by: Admin: 09/30/19 18:55 Dose: 1 tab Documented by: Admin: 09/30/19 12:53 Dose: 1 tab Documented by: Admin: 09/30/19 08:03 Dose: 1 tab Documented by: Admin: 09/30/19 03:05 Dose: 1 tab Documented by: Admin: 09/29/19 21:07 Dose: 1 tab Documented by: Admin: 09/29/19 18:15 Dose: 1 tab Documented by: Admin: 09/29/19 13:58 Dose: 1 tab Documented by: MARIA Al Hydrox/Mg Hydrox/Simethicone (Maalox) 30 ml PO Q4-6HP PRN PRN Reason: Dyspepsia Azithromycin (Zithromax) 500 mg PO DAILY@1800 JENNIFER; Protocol Stop: 10/03/19 18:01 Last Admin: 10/01/19 17:14 Dose: 500 mg Documented by: MICHAEL Calcium Carbonate/Glycine (Tums) 1,000 mg CHEWED Q4HP PRN PRN Reason: Dyspepsia Last Admin: 10/01/19 19:57 Dose: 1,000 mg Documented by: PANKAJ Cefepime HCl (Maxipime) 2 gm IV Q8H [facility]; Protocol Last Admin: 10/01/19 13:46 Dose: 2 gm Documented by: Admin: 10/01/19 06:45 Dose: 2 gm Documented by: Admin: 09/30/19 22:06 Dose: 2 gm Documented by: Admin: 09/30/19 15:03 Dose: 2 gm Documented by: Admin: 09/30/19 05:21 Dose: 2 gm Documented by: Admin: 09/29/19 21:53 Dose: 2 gm Documented by: Admin: 09/29/19 13:56 Dose: 2 gm Documented by: MARIA Diphenhydramine HCl (Benadryl) 25 mg PO HSP PRN PRN Reason: Insomnia Famotidine (Pepcid) 20 mg PO BID [facility] Last Admin: 10/01/19 09:11 Dose: 20 mg Documented by: Admin: 09/30/19 20:08 Dose: 20 mg Documented by: Admin: 09/30/19 08:23 Dose: 20 mg Documented by: Admin: 09/29/19 21:53 Dose: 20 mg Documented by: STACY Ibuprofen (Motrin) 200 mg PO Q4HP PRN; Protocol PRN Reason: Fever/Pain Last Admin: 10/01/19 06:44 Dose: 200 mg Documented by: Admin: 09/30/19 15:46 Dose: 200 mg Documented by: Admin: 09/30/19 05:21 Dose: 200 mg Documented by: Admin: 09/29/19 21:07 Dose: 200 mg Documented by: Admin: 09/29/19 15:55 Dose: 200 mg Documented by: MARIA Lactulose (Cephulac) 10 gm PO DAILYP PRN PRN Reason: Constipation Linezolid (Zyvox) 600 mg PO Q12 [facility]; Protocol Last Admin: 10/01/19 09:11 Dose: 600 mg Documented by: Admin: 09/30/19 20:08 Dose: 600 mg Documented by: PANKAJ Lorazepam (Ativan) 1 mg PO TIDP PRN PRN Reason: ANXIETY/SEDATION Last Admin: 10/01/19 19:57 Dose: 1 mg Documented by: Admin: 10/01/19 11:50 Dose: 1 mg Documented by: MICHAEL Melatonin (Melatonin 3mg Tablet) 3 mg PO QHS [facility] Ondansetron HCl (Zofran) 4 mg IV Q4HP PRN; Protocol PRN Reason: Nausea And Vomiting Senna (Senokot) 2 tab PO HSP PRN PRN Reason: Constipation Sodium Chloride (Saline Flush) 10 ml IV Q8 [facility] Last Admin: 10/01/19 13:46 Dose: 10 ml Documented by: Admin: 10/01/19 06:45 Dose: 10 ml Documented by: Admin: 09/30/19 22:08 Dose: 10 ml Documented by: Admin: 09/30/19 15:04 Dose: 10 ml Documented by: Admin: 09/30/19 05:21 Dose: 10 ml Documented by: Admin: 09/29/19 22:20 Dose: Not Given Documented by: STACY Non-Admin Reason: Continuous IV Admin: 09/29/19 15:51 Dose: Not Given Documented by: MARIA Non-Admin Reason: Continuous IV Assessment and Plan - Narrative A/P Narrative: A: 1. Community acquired pneumonia: - common causes such as Strept pneumoniae, Staph aureus were considered but pt has not responded (ongoing fevers, leucocytosis) to ongoing antibiotics (including coverage for Legionella) raising concerns for an unusual pathogen. Given ongoing SARS-coronavirus outbreak, it should be ruled out. - w/u for urine legionella Ag, CoV 229E, NL63, HKU1 and OC43 sent, awaiting results 2. B/l pyelonepheritis: in light of dysuria, increased freq and b/l flank pain - risk factors: young sexually active female - HIV serology neg, Mycoplasma IgM neg, Monospot test, blood Cx (2 sets on 2 different days) and urine Cx NGTD 3. Hepatomegaly: non tender today - could be hepatitis (Hep C neg, pt vaccinated for Hep A and B as a child). MRCP neg for any intra-hepatic or extra-hepatic obstruction - CMV IgM and EBNA pending 4. Constipation: resolved 5. History of Penicillin allergy as a young child: skin rash, without any systemic symptoms. hasnot recieved penicillin since then. - information regarding penicillin allergy testing shared with pt Recommendations: - airborne, droplet, contact isolation precautions - WED[employer] MACHINE and OP swab sent for [id number] testing. If SARS-CoV testing negative, will consider a tagged WBC scan (pt might need to be transferred to another facility) - Continue IV Cefepime 2 gm q8 hrs and IV Azithromycin 500 mg q24 hrs, day 4. If Cx negative, will plan for a 7 day course of antibiotics. will wait for further decline in WBCs and complete resolution of fever prior to discharge - Continue PO Linezolid 600 mg q12 - If fever persist, will consider antifungal therapy - flu shot before discharge will follow Denis Alves MD Infectious diseases
[2019-10-01] MEDS: MELATONIN 3 MG TABLET PO SCH (22:12)
[2019-10-01] MEDS: diphenhydrAMINE 25 MG CAPSULE PO PRN (22:12)
[2019-10-02] MEDS: HYDROcodone/APAP 5/325MG TABLET PO PRN ×4 (04:29→20:04)
[2019-10-02] MEDS: ACETAMINOPHEN 325 MG TABLET PO PRN (04:29)
[2019-10-02] MEDS: CEFEPIME 2 GM VIAL IV SCH (05:59)
[2019-10-02] MEDS: 0.9 % SODIUM CHLORIDE 10 ML SYRINGE IV SCH ×3 (05:59→21:39)
[2019-10-02] MEDS: MEROPENEM 2 GM in 0.9 % SODIUM CHLORIDE 100 ML IV SCH ×3 (07:30→21:39)
--- NOTE | 2019-10-02 08:02 | Internal Med Progress Note ---
Medical - PN: Subj Patient information: Note initiated : 10/02/19 at 7:59 am Service Date, if different from initiated Date: [] Patient: Tatiana Carrillo 24 y/o F admitted on 09/27/19 for Cold/Flu. Chief Complaint: [] Interval history: Ms. Carrillo is a 24 year old F with past medical history of endometriosis, poss ible interstitial cystitis who presents to the emergency department with 6 days of illness. She states that she has had high fever, body aches, nausea and vomiting of bilious emesis for the first 4 days as well as a sore throat. She remains febrile, was 102 degrees in the emergency department. The body aches are ongoing and she still has a sore throat. In addition she is developed some chest pain in the lower sternal/right lower chest area with breathing. She has had no cough or sputum production. She does complain of a dry mouth. Today was the sixth day of symptoms and she presents for further evaluation. She has had no ill contacts. She has had no travel, no exposures to recent tr avelers. She did not get a flu shot. In the emergency department, she has significant leukocytosis, fever, tachycardia and tachypnea. Lactate is normal. She is in renal failure with creatinine of 1.8. Patient does note that she has been drinking fluids, particularly water to try to stay hydrated. She noticed her urine was a little dark yesterday. She is noticed no blood in her urine. Patient feeling a little better this morning. Still with significant right- sided sharp pain in the lower chest with inspiration. No cough, no sputum production. Good urine output. Has not felt feverish. 09/28 Patient continues to improve. White count down to 19,000. Still right upper quadrant/lower right chest discomfort. Continues to have no cough or sputum production. 09/29 Had fever yesterday mid afternoon, none since. Still with right upper quadrant discomfort and tenderness. White count static at 19,000, though clinically looks significantly improved from presentation. 3/3 Feeling much better today. Has good appetite. Swelling in her hands and feet improving. Abdominal discomfort much improved. Occasional cough 3/4 Says she is feeling better today even. She did have a fever last night. She does not report any abdominal pain. No cough. No shortness of breath. Awaiting follow-up labs CBC coronavirus test Review of Systems: denies headache/fever/chills/nausea/vomiting/dyspnea/diarrhea. Otherwise see above. - Constitutional Vitals: Vital Signs Temp Pulse Resp BP Pulse Ox 98.5 F 87 20 125/67 93 10/02/19 07:31 10/02/19 07:31 10/02/19 07:31 10/02/19 07:31 10/02/19 07:31 Period Temp Pulse Resp BP Sys/Peña Pulse Ox Last 24 Hr 97.5 F-102.2 F 81-120 16-26 110-132/67-80 92-98 Intake and Output 10/01/19 10/02/19 10/02/19 21:59 05:59 13:59 Intake Total 750 750 Output Total 1350 Balance 750 -600 Weight 60.555 kg Intake & Output: Intake & Output 10/01/19 10/02/19 10/02/19 21:59 05:59 13:59 Intake Total 750 750 Output Total 1350 Balance 750 -600 Weight 60.555 kg Intake: Oral 750 GI Tube Flush 750 Output: Void Amount 1350 Other: Meal Breakfast Percent of Meal Consumed 100% Exam: General: Alert, Awake, No acute Distress Eyes/N/T: EOMI, Head/Neck: neck supple, CV: RRR, 1/6 SM Pulm: Clear b/l, no wheezing/rhonchi/rales Abd: soft, nontender today, +BS x4 Ext: no clubbing/cyanosis/edema Neuro: Alert, no focal deficits, moves all extremities, Skin: warm/dry Medical - PN: Obj Da - Labs CBC & Chem 7: 10/01/19 05:40 10/01/19 05:40 Labs: Abnormal Lab Results 10/01/19 10/01/19 10/01/19 05:40 05:40 05:40 WBC RBC Hgb Hct MPV Gran % Lymph % (Auto) Gran # Lymph # (Auto) [place] # (Auto) Seg Neutrophils % Lymphocytes % ESR 57 H Sodium 131 L Carbon Dioxide 19 L Calcium 7.8 L Phosphorus Magnesium GGT 261 H Alkaline Phosphatase 188 H Lactate Dehydrogenase 258 H C-Reactive Protein 16.7 H Total Protein 5.0 L Albumin 2.4 L Albumin/Globulin Ratio 0.9 L Triglycerides 168 H 0309/30/19 09/30/19 05:40 13:37 05:10 WBC 18.1 H RBC 3.25 L Hgb 10.6 L Hct 30.6 L MPV Gran % 85.1 H Lymph % (Auto) 6.3 L Gran # 15.42 H Lymph # (Auto) 1.14 L [place] # (Auto) 1.51 H Seg Neutrophils % 83 H Lymphocytes % 5 L ESR Sodium Carbon Dioxide 19 L Calcium 8.1 L Phosphorus 2.6 L Magnesium 1.5 L GGT 202 H Alkaline Phosphatase 203 H Lactate Dehydrogenase 287 H C-Reactive Protein Total Protein 5.2 L Albumin 2.3 L Albumin/Globulin Ratio 0.8 L Triglycerides 176 H 09/30/19 05:10 WBC 19.3 H RBC 3.34 L Hgb 11.0 L Hct 31.6 L MPV 10.5 H Gran % 83.5 H Lymph % (Auto) 5.6 L Gran # 16.10 H Lymph # (Auto) 1.08 L [place] # (Auto) 2.03 H Seg Neutrophils % Lymphocytes % ESR Sodium Carbon Dioxide Calcium Phosphorus Magnesium GGT Alkaline Phosphatase Lactate Dehydrogenase C-Reactive Protein Total Protein Albumin Albumin/Globulin Ratio Triglycerides Meds: Medications Acetaminophen (Tylenol) 650 mg PO Q6HP PRN; Protocol PRN Reason: Per Pain Protocol/Fever > 101 Last Admin: 10/02/19 04:29 Dose: 650 mg Documented by: Hydrocodone Bitart/Acetaminophen ([place] 5/325mg) 1 tab PO Q4HP PRN; Protocol PRN Reason: Per Pain Protocol Last Admin: 10/02/19 04:29 Dose: 1 tab Documented by: Al Hydrox/Mg Hydrox/Simethicone (Maalox) 30 ml PO Q4-6HP PRN PRN Reason: Dyspepsia Azithromycin (Zithromax) 500 mg PO DAILY@1800 JENNIFER; Protocol Stop: 10/03/19 18:01 Last Admin: 10/01/19 17:14 Dose: 500 mg Documented by: Calcium Carbonate/Glycine (Tums) 1,000 mg CHEWED Q4HP PRN PRN Reason: Dyspepsia Last Admin: 10/01/19 19:57 Dose: 1,000 mg Documented by: Diphenhydramine HCl (Benadryl) 25 mg PO HSP PRN PRN Reason: Insomnia Last Admin: 10/01/19 22:12 Dose: 25 mg Documented by: Famotidine (Pepcid) 20 mg PO BID [facility] Last Admin: 10/01/19 22:12 Dose: 20 mg Documented by: Meropenem 2 gm/ Sodium (Chloride) 100 mls @ 100 mls/hr IV Q8H [facility] Last Admin: 10/02/19 07:30 Dose: 100 mls/hr Documented by: Ibuprofen (Motrin) 200 mg PO Q4HP PRN; Protocol PRN Reason: Fever/Pain Last Admin: 10/01/19 06:44 Dose: 200 mg Documented by: Lactulose (Cephulac) 10 gm PO DAILYP PRN PRN Reason: Constipation Linezolid (Zyvox) 600 mg PO Q12 [facility]; Protocol Last Admin: 10/01/19 22:12 Dose: 600 mg Documented by: Lorazepam (Ativan) 1 mg PO TIDP PRN PRN Reason: ANXIETY/SEDATION Last Admin: 10/01/19 19:57 Dose: 1 mg Documented by: Melatonin (Melatonin 3mg Tablet) 3 mg PO QHS [facility] Last Admin: 10/01/19 22:12 Dose: 3 mg Documented by: Ondansetron HCl (Zofran) 4 mg IV Q4HP PRN; Protocol PRN Reason: Nausea And Vomiting Senna (Senokot) 2 tab PO HSP PRN PRN Reason: Constipation Sodium Chloride (Saline Flush) 10 ml IV Q8 [facility] Last Admin: 10/02/19 05:59 Dose: 10 ml Documented by: Medical - PN: A/P - Time Spent With Patient Total time spent is greater than 50% in coordination of care (as documented) at patient's floor/unit and/or counseling patient: - Narrative A/P Narrative: A: *PUI for COVID-19: *Sepsis/Fever: Suspected initial source pyelonephritis & pneumonia, but still spiking fevers on broad abx -Possibly started as lower urinary tract infection with Pyelo, bacteremia leading to pneumonia. -Lactate was normal, not severe sepsis or septic shock. Monospot negative. Urinary pneumococcal antigen, serum mycoplasma are negative. -BC nec thus far -Tmax 102.9 last night -leukocytosis slowly improving *Hepatomagaly: ?etiology - ?above vs viral -AST/ALT/bili ok, ALP/GGT mildly elevated -HIV and hep C screen negative. Vaccinated for hep A and B. -MRI unrevealing *NAVARRO: resolved. Creatinine was 1.8 at presentation, now down to 0.9. Likely prerenal *Hyponatremia: Resolved. Serum sodium 123 at presentation. -The patient has been drinking a lot of water to try to stay hydrated, this may represent more of a polydipsia. #Hypokalemia/mag: Plan: -COVID precautions Continue with merrem(started yesterday)/azithromycin dr. Alves following pending final BC Continue to follow white count Follow-up Legionella urinary antigen free water restrict Replete potassium/mag as needed -f/u with PCP/GI regarding hepatomegaly -PPx: SCD's Medical - PN: Qual - VTE Deep Vein Thrombosis/Pulmonary Embolism Present on Admission: No
[2019-10-02] MEDS: FAMOTIDINE 20 MG TABLET PO SCH ×2 (08:39→21:39)
[2019-10-02] MEDS: LINEZOLID 600 MG TABLET PO SCH ×2 (08:39→21:39)
[2019-10-02 10:32] LABS: Hematocrit 29.1 % (34.1-44.9); Hemoglobin 10.2 g/dL (11.2-15.7); Mean Cell Volume 93.9 fL (80.0-100.0); Mean Corpuscular HGB Conc 35.1 g/dL (31.0-36.0); Platelet Count 238 K/mcL (140-440); Red Cell Distribution Width 12.5 % (11.5-14.5); WBC 15.6 K/mcL (4.50-11.00)
[2019-10-02 10:52] LABS: ALT/SGPT 19 U/l (0-40); AST/SGOT 17 U/l (0-37); Albumin 2.4 gm/dL (3.2-5.2); Albumin/Globulin Ratio 0.8 (1.0-2.3); Alkaline Phosphatase 148 U/L (39-117); Bilirubin,Direct 0.2 mg/dL (0.0-0.3); Bilirubin,Total 0.7 mg/dL (0.0-1.0); Blood Urea Nitrogen 8 mg/dl (6-20); Carbon Dioxide 20 mmol/L (22-30); Chloride 99 mmol/L (96-108); Globulin 3.1 gm/dL (2.2-3.7); Glomerular Filtration Rate 122; Glucose 79 mg/dL (70-105); Lactate Dehydrogenase 218 U/L (94-250); Phosphorous 3.2 mg/dL (2.7-4.5); Triglycerides 179 mg/dl (<150); Uric Acid 2.5 mg/dL (2.5-8.0)
[2019-10-02] MEDS ORDERED: SODIUM CHLORIDE 1 GM TABLET PO ONE (11:08)
[2019-10-02 11:12] LABS: Band Neutrophils % 8 % (0-10); Eosinophils % (Manual) 1 % (0-7); Lymphocytes % 8 % (15-49); Metamyelocytes % 1 % (0-0); Monocytes % (Manual) 13 % (1-12); Platelet Estimate NORMAL (NORMAL); RBC Morphology NORMAL (NORMAL); Segmented Neutrophils % 69 % (38-78); Toxic Granulation FEW (NONE SEEN)
[2019-10-02] MEDS: LORazepam 1 MG TABLET PO PRN ×2 (11:25→19:21)
[2019-10-02 11:56] LABS: Total Protein PEP 5.3 gm/dL (5.9-8.4)
--- NOTE | 2019-10-02 14:01 | Infectious Disease Prog Note ---
Subjective Patient information: Note initiated : 10/02/19 at 1:57 pm Service Date, if different from initiated Date: [] Patient: Tatiana Carrillo 24 y/o F admitted on 09/27/19 for Cold/Flu. Chief Complaint: [] Interval history: Pt doing better than yesterday. She still has fevers, upto 38.6-39.0C in last 24 hrs. Rates her belly pain at 3/10. Is inappropriate in her verbage (asks me to "get out of the room"), refuses to be examined. Threatens to leave AMA. Mentions that she should be discharged today. Shared with her that we are still waiting SARS-coronavirus testing results, and she has not be afebrile yet. Shared that she might be close to discharge once fever subsides and WBC continue to come down further. She called her dad informing him that she won't be discharged today. Objective Objective Narrative: ao x 3 Pt didnot give her permission to examine her. - Vital Signs Vital signs: Vital Signs Temp Pulse Pulse Resp BP BP Pulse Ox 10/02/19 11:34 36.3 C 77 20 145/82 93 10/02/19 07:44 87 20 93 10/02/19 07:31 36.9 C 87 20 125/67 93 10/02/19 05:14 37.7 C H 10/02/19 04:29 39.0 C H 10/02/19 04:22 39.0 C H 120 H 26 H 122/70 92 10/01/19 22:19 37.7 C H 88 24 H 120/76 92 10/01/19 19:58 37.7 C H 104 H 24 H 110/78 94 10/01/19 17:13 38.6 C H 10/01/19 16:00 38.6 C H 105 H 19 122/80 93 Intake and Output 10/01/19 10/02/19 10/02/19 21:59 05:59 13:59 Intake Total 750 750 100 Output Total 1350 Balance 750 -600 100 Intake: IV 100 Merrem 2 gm In Sodium Chloride 100 0.9% 100 ml @ 100 mls/hr IV Q8H [facility] Rx#:[id number] Oral 750 GI Tube Flush 750 Output: Void Amount 1350 Other: Meal Breakfast Percent of Meal Consumed 100% Weight 60.555 kg Intake & Output: Intake & Output 10/01/19 10/02/19 10/02/19 21:59 05:59 13:59 Intake Total 750 750 100 Output Total 1350 Balance 750 -600 100 Weight 60.555 kg Intake: IV 100 Merrem 2 gm In Sodium Chloride 100 0.9% 100 ml @ 100 mls/hr IV Q8H [facility] Rx#:[id number] Oral 750 GI Tube Flush 750 Output: Void Amount 1350 Other: Meal Breakfast Percent of Meal Consumed 100% - Lab 10/02/19 07:05 10/02/19 07:05 Most recent lab results Calcium 8.0 mg/dl (8.6-10.4) L 10/02/19 07:05 Phosphorus 3.2 mg/dL (2.7-4.5) 10/02/19 07:05 Magnesium 1.6 mg/dL (1.6-2.5) 10/02/19 07:05 Microbiology 09/29/19 12:20 Blood Blood Culture - Preliminary 09/29/19 12:50 Blood Blood Culture - Preliminary 09/30/19 17:50 Blood Blood Culture - Preliminary 09/30/19 17:58 Blood Blood Culture - Preliminary 09/28/19 18:26 Urine - Clean Void Mid-Stream Urine Culture - Final 09/27/19 19:35 Nasopharynx Respiratory Panel (PCR) - Final 09/27/19 19:35 Nasopharynx Respiratory Virus Panel (PCR) - Final 09/27/19 20:24 Nose MRSA (PCR) - Final Medications Active Medications: Acetaminophen (Tylenol) 650 mg PO Q6HP PRN; Protocol PRN Reason: Per Pain Protocol/Fever > 101 Last Admin: 10/02/19 04:29 Dose: 650 mg Documented by: Admin: 10/01/19 17:13 Dose: 650 mg Documented by: Admin: 09/30/19 17:01 Dose: 650 mg Documented by: AARON Hydrocodone Bitart/Acetaminophen ([place] 5/325mg) 1 tab PO Q4HP PRN; Protocol PRN Reason: Per Pain Protocol Last Admin: 10/02/19 11:31 Dose: 1 tab Documented by: [email or web address] Admin: 10/02/19 04:29 Dose: 1 tab Documented by: Admin: 10/01/19 19:57 Dose: 1 tab Documented by: Admin: 10/01/19 16:33 Dose: 1 tab Documented by: Admin: 10/01/19 11:50 Dose: 1 tab Documented by: Admin: 10/01/19 07:13 Dose: 1 tab Documented by: Admin: 10/01/19 03:13 Dose: 1 tab Documented by: Admin: 09/30/19 18:55 Dose: 1 tab Documented by: Admin: 09/30/19 12:53 Dose: 1 tab Documented by: Admin: 09/30/19 08:03 Dose: 1 tab Documented by: Admin: 09/30/19 03:05 Dose: 1 tab Documented by: Admin: 09/29/19 21:07 Dose: 1 tab Documented by: Admin: 09/29/19 18:15 Dose: 1 tab Documented by: Admin: 09/29/19 13:58 Dose: 1 tab Documented by: MARIA Ruiz Hydrox/Mg Hydrox/Simethicone (Maalox) 30 ml PO Q4-6HP PRN PRN Reason: Dyspepsia Azithromycin (Zithromax) 500 mg PO DAILY@1800 [facility]; Protocol Stop: 10/03/19 18:01 Last Admin: 10/01/19 17:14 Dose: 500 mg Documented by: MICHAEL Calcium Carbonate/Glycine (Tums) 1,000 mg CHEWED Q4HP PRN PRN Reason: Dyspepsia Last Admin: 10/01/19 19:57 Dose: 1,000 mg Documented by: PANKAJ Diphenhydramine HCl (Benadryl) 25 mg PO HSP PRN PRN Reason: Insomnia Last Admin: 10/01/19 22:12 Dose: 25 mg Documented by: PANKAJ Famotidine (Pepcid) 20 mg PO BID [facility] Last Admin: 10/02/19 08:39 Dose: 20 mg Documented by: Admin: 10/01/19 22:12 Dose: 20 mg Documented by: Admin: 10/01/19 09:11 Dose: 20 mg Documented by: Admin: 09/30/19 20:08 Dose: 20 mg Documented by: Admin: 09/30/19 08:23 Dose: 20 mg Documented by: Admin: 09/29/19 21:53 Dose: 20 mg Documented by: STACY Meropenem 2 gm/ Sodium (Chloride) 100 mls @ 100 mls/hr IV Q8H [facility] Last Infusion: 10/02/19 08:30 Dose: 0 mls/hr Documented by: Admin: 10/02/19 07:30 Dose: 100 mls/hr Documented by: JOYCE Ibuprofen (Motrin) 200 mg PO Q4HP PRN; Protocol PRN Reason: Fever/Pain Last Admin: 10/01/19 06:44 Dose: 200 mg Documented by: Admin: 09/30/19 15:46 Dose: 200 mg Documented by: Admin: 09/30/19 05:21 Dose: 200 mg Documented by: Admin: 09/29/19 21:07 Dose: 200 mg Documented by: Admin: 09/29/19 15:55 Dose: 200 mg Documented by: MARIA Lactulose (Cephulac) 10 gm PO DAILYP PRN PRN Reason: Constipation Linezolid (Zyvox) 600 mg PO Q12 [facility]; Protocol Last Admin: 10/02/19 08:39 Dose: 600 mg Documented by: Admin: 10/01/19 22:12 Dose: 600 mg Documented by: Admin: 10/01/19 09:11 Dose: 600 mg Documented by: Admin: 09/30/19 20:08 Dose: 600 mg Documented by: PANKAJ Lorazepam (Ativan) 1 mg PO TIDP PRN PRN Reason: ANXIETY/SEDATION Last Admin: 10/02/19 11:25 Dose: 1 mg Documented by: Admin: 10/01/19 19:57 Dose: 1 mg Documented by: Admin: 10/01/19 11:50 Dose: 1 mg Documented by: MICHAEL Melatonin (Melatonin 3mg Tablet) 3 mg PO QHS [facility] Last Admin: 10/01/19 22:12 Dose: 3 mg Documented by: PANKAJ Ondansetron HCl (Zofran) 4 mg IV Q4HP PRN; Protocol PRN Reason: Nausea And Vomiting Senna (Senokot) 2 tab PO HSP PRN PRN Reason: Constipation Sodium Chloride (Saline Flush) 10 ml IV Q8 [facility] Last Admin: 10/02/19 05:59 Dose: 10 ml Documented by: Admin: 10/01/19 22:14 Dose: 10 ml Documented by: Admin: 10/01/19 13:46 Dose: 10 ml Documented by: Admin: 10/01/19 06:45 Dose: 10 ml Documented by: Admin: 09/30/19 22:08 Dose: 10 ml Documented by: Admin: 09/30/19 15:04 Dose: 10 ml Documented by: Admin: 09/30/19 05:21 Dose: 10 ml Documented by: Admin: 09/29/19 22:20 Dose: Not Given Documented by: STACY Non-Admin Reason: Continuous IV Admin: 09/29/19 15:51 Dose: Not Given Documented by: MARIA Non-Admin Reason: Continuous IV Sodium Chloride (Sodium Chloride) 2 gm PO BID [facility] Stop: 10/02/19 21:01 Assessment and Plan - Narrative A/P Narrative: A: 1. Fever: could be (1) or (2). In addition, non infectious causes should be considered as pt's imaging, infectious ds w/u has not yielded any positive results, and pt continues to be febrile despite broad-spectrum antibiotics - HIV serology neg, Mycoplasma IgM neg, Monospot test neg, CK normal, blood Cx (2 sets on 2 different days) and urine Cx NGTD. Influenza, parainfluenza, RSV, Adenovirus, CoV 229E, NL63, HKU1 and OC43 and other respiratory viruses are neg on resp viral panel ([place] [facility] [place] [facility] in [place] 2. Community acquired pneumonia: - common causes such as Strept pneumoniae, Staph aureus were considered but pt has not responded (ongoing fevers, leucocytosis) to ongoing antibiotics (including coverage for Legionella) raising concerns for an unusual pathogen. Given ongoing SARS-coronavirus outbreak, it should be ruled out. - w/u for SARS-CoV-2, urine legionella Ag sent, awaiting results 3. B/l pyelonepheritis: in light of dysuria, increased freq and b/l flank pain - risk factors: young sexually active female 4. Hepatomegaly: non tender yesterday - Hep C neg, pt vaccinated for Hep A and B as a child. MRCP neg for any intra- hepatic or extra-hepatic obstruction - CMV IgM and EBNA pending 5. History of Penicillin allergy as a young child: skin rash, without any systemic symptoms. has not recieved penicillin since then. - information regarding penicillin allergy testing shared with pt Recommendations: - airborne, droplet, contact isolation precautions - If SARS-CoV testing negative, will consider a tagged WBC scan (pt might need to be transferred to another facility) - Continue IV Azithromycin 500 mg q24 hrs, day 5. If Cx negative, will plan for a 7 day course of antibiotics. will wait for further decline in WBCs and complete resolution of fever prior to discharge - Continue PO Linezolid 600 mg q12, day 3 - Stop IV Cefepime. Start IV Meropenem 2gm q8hrs - will order tests for initial w/u of FUO due to non-infectious causes: TEVIN, Serum protein electrophoresis, Rheumatoid factor - flu shot before discharge will follow Denis Alves MD Infectious diseases
[2019-10-02] MEDS: AZITHROMYCIN 250 MG TABLET PO SCH (18:16)
[2019-10-02] MEDS ORDERED: SODIUM CHLORIDE 1 GM TABLET PO SCH (21:00)
[2019-10-02] MEDS: MELATONIN 3 MG TABLET PO SCH (21:38)
[2019-10-02] MEDS: diphenhydrAMINE 25 MG CAPSULE PO PRN (22:47)
[2019-10-03] MEDS: HYDROcodone/APAP 5/325MG TABLET PO PRN (04:30)
[2019-10-03] MEDS: MEROPENEM 2 GM in 0.9 % SODIUM CHLORIDE 100 ML IV SCH (06:02)
[2019-10-03] MEDS: 0.9 % SODIUM CHLORIDE 10 ML SYRINGE IV SCH (06:02)
[2019-10-03 06:50] LABS: Blood Urea Nitrogen 8 mg/dl (6-20); Calcium 8.6 mg/dl (8.6-10.4); Carbon Dioxide 22 mmol/L (22-30); Chloride 99 mmol/L (96-108); Glomerular Filtration Rate 122; Glucose 98 mg/dL (70-105)
[2019-10-03 06:51] LABS: Basophils # (Auto) 0.04 K/mcL (0.00-0.30); Basophils % (Auto) 0.3 % (0.0-2.0); Eosinophils # (Auto) 0.07 K/mcL (0.00-0.70); Eosinophils % (Auto) 0.5 % (0.0-7.0); Granulocytes % (Auto) 79.7 % (38.0-78.0); Hematocrit 32.1 % (34.1-44.9); Lymphocytes # (Auto) 1.21 K/mcL (1.50-4.80); Lymphocytes % (Auto) 9.3 % (15.5-49.0); Mean Corpuscular HGB Conc 34.3 g/dL (31.0-36.0); Mean Platelet Volume 9.7 fL (7.4-10.4); Monocytes # (Auto) 1.32 K/mcL (0.10-0.90); Monocytes % (Auto) 10.2 % (1.0-12.0); Platelet Count 348 K/mcL (140-440); RBC 3.38 M/mcL (3.59-5.38); Red Cell Distribution Width 12.2 % (11.5-14.5)
[2019-10-03 07:14] LABS: Creatine Kinase 8 IU/L (24-170)
--- NOTE | 2019-10-03 09:12 | Infectious Disease Prog Note ---
Subjective Patient information: Note initiated : 10/03/19 at 8:50 am Service Date, if different from initiated Date: [] Patient: Tatiana Carrillo 24 y/o F admitted on 09/27/19 for Cold/Flu. Chief Complaint: [] Interval history: Pt calm and appropriate today. Denies any symptoms at all. No fever last night. Denies any belly pain, diarrhea, n/v, chest pain. Shared results with her, plan to f/u with PCP to make sure WBC continue to come down to normal and to call us in case she notices any fever. Pt voiced understanding. Objective Objective Narrative: ao x 3, in nad no thrush chest ctab, no crackles heard s1 s2 normal bs ++, nttd - Vital Signs Vital signs: Vital Signs Temp Pulse Pulse Resp BP Pulse Ox 10/03/19 07:00 97 H 18 97 10/03/19 06:59 36.6 C 97 H 18 126/86 97 10/03/19 04:28 37.1 C 107 H 22 119/68 95 10/02/19 22:51 36.8 C 95 H 22 123/79 96 10/02/19 20:07 36.7 C 102 H 22 126/75 95 10/02/19 16:00 37.3 C H 88 16 122/80 95 10/02/19 11:34 36.3 C 77 20 145/82 93 Intake and Output 10/02/19 10/03/19 10/03/19 21:59 05:59 13:59 Intake Total 1000 770 Output Total 350 650 Balance 650 120 Intake: IV 100 100 Merrem 2 gm In Sodium Chloride 100 100 0.9% 100 ml @ 100 mls/hr IV Q8H [facility] Rx#:[id number] Oral 900 670 Output: Void Amount 350 650 Other: Urine Color Pale Stool Size Moderate Stool Color Brown Stool Consistency Soft # Voids 3 1 # Bowel Movements 1 Weight 59.647 kg Intake & Output: Intake & Output 10/02/19 10/03/19 10/03/19 21:59 05:59 13:59 Intake Total 1000 770 Output Total 350 650 Balance 650 120 Weight 59.647 kg Intake: IV 100 100 Merrem 2 gm In Sodium Chloride 100 100 0.9% 100 ml @ 100 mls/hr IV Q8H [facility] Rx#:[id number] Oral 900 670 Output: Void Amount 350 650 Other: Urine Color Pale Stool Size Moderate Stool Color Brown Stool Consistency Soft # Voids 3 1 # Bowel Movements 1 - Lab 10/03/19 05:40 10/03/19 05:40 Most recent lab results Calcium 8.6 mg/dl (8.6-10.4) 10/03/19 05:40 Phosphorus 3.2 mg/dL (2.7-4.5) 10/02/19 07:05 Magnesium 1.6 mg/dL (1.6-2.5) 10/02/19 07:05 Microbiology 09/30/19 17:50 Blood Blood Culture - Preliminary 09/30/19 17:58 Blood Blood Culture - Preliminary 09/29/19 12:20 Blood Blood Culture - Preliminary 09/29/19 12:50 Blood Blood Culture - Preliminary 09/28/19 18:26 Urine - Clean Void Mid-Stream Urine Culture - Final 09/27/19 19:35 Nasopharynx Respiratory Panel (PCR) - Final 09/27/19 19:35 Nasopharynx Respiratory Virus Panel (PCR) - Final 09/27/19 20:24 Nose MRSA (PCR) - Final Medications Active Medications: Acetaminophen (Tylenol) 650 mg PO Q6HP PRN; Protocol PRN Reason: Per Pain Protocol/Fever > 101 Last Admin: 10/02/19 04:29 Dose: 650 mg Documented by: Admin: 10/01/19 17:13 Dose: 650 mg Documented by: Admin: 09/30/19 17:01 Dose: 650 mg Documented by: AARON Hydrocodone Bitart/Acetaminophen ([place] 5/325mg) 1 tab PO Q4HP PRN; Protocol PRN Reason: Per Pain Protocol Last Admin: 10/03/19 04:30 Dose: 1 tab Documented by: Admin: 10/02/19 20:04 Dose: 1 tab Documented by: Admin: 10/02/19 15:55 Dose: 1 tab Documented by: Admin: 10/02/19 11:31 Dose: 1 tab Documented by: Admin: 10/02/19 04:29 Dose: 1 tab Documented by: Admin: 10/01/19 19:57 Dose: 1 tab Documented by: Admin: 10/01/19 16:33 Dose: 1 tab Documented by: Admin: 10/01/19 11:50 Dose: 1 tab Documented by: Admin: 10/01/19 07:13 Dose: 1 tab Documented by: Admin: 10/01/19 03:13 Dose: 1 tab Documented by: Admin: 09/30/19 18:55 Dose: 1 tab Documented by: Admin: 09/30/19 12:53 Dose: 1 tab Documented by: Admin: 09/30/19 08:03 Dose: 1 tab Documented by: Admin: 09/30/19 03:05 Dose: 1 tab Documented by: Admin: 09/29/19 21:07 Dose: 1 tab Documented by: Admin: 09/29/19 18:15 Dose: 1 tab Documented by: Admin: 09/29/19 13:58 Dose: 1 tab Documented by: MARIA Ruiz Hydrox/Mg Hydrox/Simethicone (Maalox) 30 ml PO Q4-6HP PRN PRN Reason: Dyspepsia Azithromycin (Zithromax) 500 mg PO DAILY@1800 [facility]; Protocol Stop: 10/03/19 18:01 Last Admin: 10/02/19 18:16 Dose: 500 mg Documented by: Admin: 10/01/19 17:14 Dose: 500 mg Documented by: MICHAEL Calcium Carbonate/Glycine (Tums) 1,000 mg CHEWED Q4HP PRN PRN Reason: Dyspepsia Last Admin: 10/01/19 19:57 Dose: 1,000 mg Documented by: PANKAJ Diphenhydramine HCl (Benadryl) 25 mg PO HSP PRN PRN Reason: Insomnia Last Admin: 10/02/19 22:47 Dose: 25 mg Documented by: Admin: 10/01/19 22:12 Dose: 25 mg Documented by: PANKAJ Famotidine (Pepcid) 20 mg PO BID [facility] Last Admin: 10/02/19 21:39 Dose: 20 mg Documented by: Admin: 10/02/19 08:39 Dose: 20 mg Documented by: Admin: 10/01/19 22:12 Dose: 20 mg Documented by: Admin: 10/01/19 09:11 Dose: 20 mg Documented by: Admin: 09/30/19 20:08 Dose: 20 mg Documented by: Admin: 09/30/19 08:23 Dose: 20 mg Documented by: Admin: 09/29/19 21:53 Dose: 20 mg Documented by: STACY Meropenem 2 gm/ Sodium (Chloride) 100 mls @ 100 mls/hr IV Q8H [facility] Last Admin: 10/03/19 06:02 Dose: 100 mls/hr Documented by: Infusion: 10/02/19 22:39 Dose: 100 mls/hr Documented by: Admin: 10/02/19 21:39 Dose: 100 mls/hr Documented by: Infusion: 10/02/19 18:16 Dose: 0 mls/hr Documented by: Admin: 10/02/19 14:53 Dose: 100 mls/hr Documented by: Infusion: 10/02/19 08:30 Dose: 0 mls/hr Documented by: Admin: 10/02/19 07:30 Dose: 100 mls/hr Documented by: JOYCE Ibuprofen (Motrin) 200 mg PO Q4HP PRN; Protocol PRN Reason: Fever/Pain Last Admin: 10/01/19 06:44 Dose: 200 mg Documented by: Admin: 09/30/19 15:46 Dose: 200 mg Documented by: Admin: 09/30/19 05:21 Dose: 200 mg Documented by: Admin: 09/29/19 21:07 Dose: 200 mg Documented by: Admin: 09/29/19 15:55 Dose: 200 mg Documented by: MARIA Lactulose (Cephulac) 10 gm PO DAILYP PRN PRN Reason: Constipation Linezolid (Zyvox) 600 mg PO Q12 [facility]; Protocol Last Admin: 10/02/19 21:39 Dose: 600 mg Documented by: Admin: 10/02/19 08:39 Dose: 600 mg Documented by: Admin: 10/01/19 22:12 Dose: 600 mg Documented by: Admin: 10/01/19 09:11 Dose: 600 mg Documented by: Admin: 09/30/19 20:08 Dose: 600 mg Documented by: PANKAJ Lorazepam (Ativan) 1 mg PO TIDP PRN PRN Reason: ANXIETY/SEDATION Last Admin: 10/02/19 19:21 Dose: 1 mg Documented by: Admin: 10/02/19 11:25 Dose: 1 mg Documented by: Admin: 10/01/19 19:57 Dose: 1 mg Documented by: Admin: 10/01/19 11:50 Dose: 1 mg Documented by: MICHAEL Melatonin (Melatonin 3mg Tablet) 3 mg PO QHS [facility] Last Admin: 10/02/19 21:38 Dose: 3 mg Documented by: Admin: 10/01/19 22:12 Dose: 3 mg Documented by: PANKAJ Ondansetron HCl (Zofran) 4 mg IV Q4HP PRN; Protocol PRN Reason: Nausea And Vomiting Senna (Senokot) 2 tab PO HSP PRN PRN Reason: Constipation Sodium Chloride (Saline Flush) 10 ml IV Q8 [facility] Last Admin: 10/03/19 06:02 Dose: 10 ml Documented by: Admin: 10/02/19 21:39 Dose: 10 ml Documented by: Admin: 10/02/19 14:53 Dose: 10 ml Documented by: Admin: 10/02/19 05:59 Dose: 10 ml Documented by: Admin: 10/01/19 22:14 Dose: 10 ml Documented by: Admin: 10/01/19 13:46 Dose: 10 ml Documented by: Admin: 10/01/19 06:45 Dose: 10 ml Documented by: Admin: 09/30/19 22:08 Dose: 10 ml Documented by: Admin: 09/30/19 15:04 Dose: 10 ml Documented by: Admin: 09/30/19 05:21 Dose: 10 ml Documented by: Admin: 09/29/19 22:20 Dose: Not Given Documented by: STACY Non-Admin Reason: Continuous IV Admin: 09/29/19 15:51 Dose: Not Given Documented by: MARIA Non-Admin Reason: Continuous IV Assessment and Plan - Narrative A/P Narrative: A: 1. Fever: resolved - could be (1) or (2). In addition, non infectious causes should be considered as pt's imaging, infectious ds w/u has not yielded any positive results, and pt continued to be febrile despite broad-spectrum antibiotics - HIV serology neg, Mycoplasma IgM neg, urine Legionella Ag neg, Monospot test neg, CK normal, blood Cx (2 sets on 2 different days) and urine Cx NGTD. Infl uenza, parainfluenza, RSV, Adenovirus, CoV 229E, NL63, HKU1 and OC43 and other respiratory viruses are neg on resp viral panel (sent to [facility] and [facility] in [place]) 2. Community acquired pneumonia: lungs CTA, pt on room air without any chest pain - common causes such as Strept pneumoniae, Staph aureus were considered but pt has not responded (ongoing fevers, leucocytosis) to ongoing antibiotics (i ncluding coverage for Legionella) raising concerns for an unusual pathogen. Given ongoing SARS-coronavirus outbreak, w/u for SARS-CoV-2 was sent and came back negative 3. B/l pyelonepheritis: in light of dysuria, increased freq and b/l flank pain - risk factors: young sexually active female - no CVA tenderness, dysuria resolved 4. Hepatomegaly: non tender today - Hep C neg, pt vaccinated for Hep A and B as a child. MRCP neg for any intra- hepatic or extra-hepatic obstruction - ALP, GGT decreasing 5. History of Penicillin allergy as a young child: skin rash, without any systemic symptoms. has not recieved penicillin since then. - information regarding penicillin allergy testing shared with pt Recommendations: - stop airborne, droplet, contact isolation precautions - Stop all antibiotics - F/u with PCP for repeat CBC to ensure they continue to come down. Non- infectious labs (TEVIN screen, RF, SPEP) to be followed by PCP in case she is positive for any of them, might need further w/u. - will order tests for initial w/u of FUO due to non-infectious causes: TEIVN, Serum protein electrophoresis, Rheumatoid factor Denis Alves MD Infectious diseases
[2019-10-03] MEDS: FAMOTIDINE 20 MG TABLET PO SCH (09:14)
[2019-10-03] MEDS: LINEZOLID 600 MG TABLET PO SCH (09:14)
--- NOTE | 2019-10-03 09:26 | Discharge Summary ---
Medical - DS: Prov Patient information: Note initiated : 10/03/19 at 9:23 am Service Date, if different from initiated Date: [] Patient: Tatiana Carrillo 24 y/o F admitted on 09/27/19 for Cold/Flu. Chief Complaint: [] Date of admission: 09/27/19 18:40 Discharge date: 10/03/19 Primary care physician: PCP No Consults: 09/27/19 Consult to Physician [CONS] Stat Comment: Consulting Provider: Belinda Venegas Reason For Exam: Physician to Consult 09/29/19 12:08 Consult to Infectious Disease [CONS] Routine Comment: Consulting Provider: Denis Alves Reason For Exam: Physician to Consult Medical - DS: Hosp Hospital Course: Ms. Carrillo is a 24 year old F with past medical history of endometriosis, possible interstitial cystitis who presents to the emergency department with 6 days of illness. She states that she has had high fever, body aches, nausea and vomiting of bilious emesis for the first 4 days as well as a sore throat. She remains febrile, was 102 degrees in the emergency department. The body aches are ongoing and she still has a sore throat. In addition she is developed some chest pain in the lower sternal/right lower chest area with breathing. She has had no cough or sputum production. She does complain of a dry mouth. Today was the sixth day of symptoms and she presents for further evaluation. She has had no ill contacts. She has had no travel, no exposures to recent travelers. She did not get a flu shot. In the emergency department, she has significant leukocytosis, fever, tachycardia and tachypnea. Lactate is normal. She is in renal failure with creatinine of 1.8. Patient does note that she has been drinking fluids, particularly water to try to stay hydrated. She noticed her urine was a little dark yesterday. She is noticed no blood in her urine. Patient feeling a little better this morning. Still with significant right- sided sharp pain in the lower chest with inspiration. No cough, no sputum production. Good urine output. Has not felt feverish. 09/28 Patient continues to improve. White count down to 19,000. Still right upper quadrant/lower right chest discomfort. Continues to have no cough or sputum production. 09/29 Had fever yesterday mid afternoon, none since. Still with right upper quadrant discomfort and tenderness. White count static at 19,000, though clinically looks significantly improved from presentation. 3/3 Feeling much better today. Has good appetite. Swelling in her hands and feet improving. Abdominal discomfort much improved. Occasional cough / Says she is feeling better today even. She did have a fever last night. She does not report any abdominal pain. No cough. No shortness of breath. Awaiting follow-up labs CBC coronavirus test 10/02 Continues to feel better doing well. Labs continue to improve. Patient follow-up with PCP for remaining labs that are pending and GI for evaluation of hepatomegaly. A: *Sepsis/Fever: Suspected initial source pyelonephritis & pneumonia, *Hepatomagaly: ?etiology - ?above vs viral -AST/ALT/bili ok, ALP/GGT mildly elevated -HIV and hep C screen negative. Vaccinated for hep A and B. -MRI unrevealing *NAVARRO: resolved. Creatinine was 1.8 at presentation, now down to 0.9. Likely prerenal *Hyponatremia: Resolved. Serum sodium 123 at presentation. -The patient has been drinking a lot of water to try to stay hydrated, this may represent more of a polydipsia. Discharge diagnosis: Pyelonephritis and pneumonia sepsis hepatomegaly acute kidney injury hypona - Time Spent with Patient Total time spent providing and/or coordinating discharge services: Greater than 30 minutes Medical - DS: Exam - Constitutional Vitals: Vital Signs Temp Pulse Pulse Resp BP Pulse Ox 10/03/19 07:00 97 H 18 97 10/03/19 06:59 97.8 F 97 H 18 126/86 97 10/03/19 04:28 98.7 F 107 H 22 119/68 95 10/02/19 22:51 98.2 F 95 H 22 123/79 96 10/02/19 20:07 98.1 F 102 H 22 126/75 95 10/02/19 16:00 99.1 F H 88 16 122/80 95 10/02/19 11:34 97.4 F 77 20 145/82 93 Intake and Output 10/02/19 10/03/19 10/03/19 21:59 05:59 13:59 Intake Total 1000 770 150 Output Total 350 650 Balance 650 120 150 Intake: IV 100 100 100 Merrem 2 gm In Sodium Chloride 100 100 100 0.9% 100 ml @ 100 mls/hr IV Q8H [facility] Rx#:[id number] Oral 900 670 50 Output: Void Amount 350 650 Other: Meal Breakfast Percent of Meal Consumed 50% Feeding Ability Independent Urine Color Pale Stool Size Moderate Stool Color Brown Stool Consistency Soft # Voids 3 1 # Bowel Movements 1 Weight 59.647 kg Medical - DS: Data Labs on day of discharge: Labs from last 24 hours 10/03/19 10/03/19 10/03/19 05:40 05:40 05:40 WBC 13.0 H RBC 3.38 L Hgb 11.0 L Hct 32.1 L MCV 95.0 MCH 32.5 MCHC 34.3 RDW 12.2 Plt Count 348 MPV 9.7 Gran % 79.7 H Lymph % (Auto) 9.3 L [place] % (Auto) 10.2 Eos % (Auto) 0.5 Baso % (Auto) 0.3 Gran # 10.31 H Lymph # (Auto) 1.21 L [place] # (Auto) 1.32 H Eos # (Auto) 0.07 Baso # (Auto) 0.04 Total Counted Seg Neutrophils % Band Neutrophils % Lymphocytes % Monocytes % (Manual) Eosinophils % (Manual) Metamyelocytes % WBC Morphology Toxic Granulation Platelet Estimate RBC Morphology ESR Sodium 133 Potassium 4.4 Chloride 99 Carbon Dioxide 22 Anion Gap 12.0 BUN 8 Creatinine 0.7 GFR Calculation 122 Glucose 98 Uric Acid Calcium 8.6 Phosphorus Magnesium Total Bilirubin Direct Bilirubin GGT AST ALT Alkaline Phosphatase Lactate Dehydrogenase Total Creatine Kinase 8 L C-Reactive Protein Total Protein Total Protein (PEP) Albumin Albumin (PEP) Globulin Globulin (PEP) Albumin/Globulin Ratio Albumin/Globulin (PEP) Gsedd-0-Xdnrcvtkb Vsagb-9-Qyvipyajh Beta Globulins Gamma Globulins PEP Interpretation Triglycerides Rheumatoid Factor TEVIN Titer TEVIN FA Screen TEVIN Pattern SS-A Antibody SS-B Antibody Sm ([place]) Antibody SM/ASSEMBLER 1ST SHIFT Antibody Scl-70 Antibody Double Strand DNA Ab Ribosomal P Prot Ab Thyroid Peroxidase Ab Complement C3c Complement C4c Ur L.pneumophila Ag 10/02/19 10/02/19 10/02/19 07:05 07:05 07:05 WBC RBC Hgb Hct MCV MCH MCHC RDW Plt Count MPV Gran % Lymph % (Auto) [place] % (Auto) Eos % (Auto) Baso % (Auto) Gran # Lymph # (Auto) [place] # (Auto) Eos # (Auto) Baso # (Auto) Total Counted Seg Neutrophils % Band Neutrophils % Lymphocytes % Monocytes % (Manual) Eosinophils % (Manual) Metamyelocytes % WBC Morphology Toxic Granulation Platelet Estimate RBC Morphology ESR 61 H Sodium Potassium Chloride Carbon Dioxide Anion Gap BUN Creatinine GFR Calculation Glucose Uric Acid Calcium Phosphorus Magnesium Total Bilirubin Direct Bilirubin GGT AST ALT Alkaline Phosphatase Lactate Dehydrogenase Total Creatine Kinase 15 L C-Reactive Protein 15.0 H Total Protein Total Protein (PEP) 5.3 L Albumin Albumin (PEP) Pending Globulin Globulin (PEP) Pending Albumin/Globulin Ratio Albumin/Globulin (PEP) Pending Utcyk-1-Pqvzuureo Pending Yerdv-2-Zmhnsonzv Pending Beta Globulins Pending Gamma Globulins Pending PEP Interpretation Pending Triglycerides Rheumatoid Factor TEVIN Titer TEVIN FA Screen TEVIN Pattern SS-A Antibody SS-B Antibody Sm ([place]) Antibody SM/ASSEMBLER 1ST SHIFT Antibody Scl-70 Antibody Double Strand DNA Ab Ribosomal P Prot Ab Thyroid Peroxidase Ab Complement C3c Complement C4c Ur L.pneumophila Ag 10/02/19 10/02/19 10/02/19 07:05 07:05 07:05 WBC RBC Hgb Hct MCV MCH MCHC RDW Plt Count MPV Gran % Lymph % (Auto) [place] % (Auto) Eos % (Auto) Baso % (Auto) Gran # Lymph # (Auto) [place] # (Auto) Eos # (Auto) Baso # (Auto) Total Counted Seg Neutrophils % Band Neutrophils % Lymphocytes % Monocytes % (Manual) Eosinophils % (Manual) Metamyelocytes % WBC Morphology Toxic Granulation Platelet Estimate RBC Morphology ESR Sodium Potassium Chloride Carbon Dioxide Anion Gap BUN Creatinine GFR Calculation Glucose Uric Acid Calcium Phosphorus Magnesium Total Bilirubin Direct Bilirubin GGT AST ALT Alkaline Phosphatase Lactate Dehydrogenase Total Creatine Kinase C-Reactive Protein Cancelled Total Protein Total Protein (PEP) Albumin Albumin (PEP) Globulin Globulin (PEP) Albumin/Globulin Ratio Albumin/Globulin (PEP) Csagi-9-Phsrymvrp Xdxvc-5-Suyzgdjxe Beta Globulins Gamma Globulins PEP Interpretation Triglycerides Rheumatoid Factor Pending < 10 TEVIN Titer Pending TEVIN FA Screen Pending TEVIN Pattern Pending SS-A Antibody Pending SS-B Antibody Pending Sm ([place]) Antibody Pending SM/ASSEMBLER 1ST SHIFT Antibody Pending Scl-70 Antibody Pending Double Strand DNA Ab Pending Ribosomal P Prot Ab Pending Thyroid Peroxidase Ab Pending Complement C3c Pending Complement C4c Pending Ur L.pneumophila Ag 0310/02/19 09/27/19 07:05 07:05 19:48 WBC 15.6 H RBC 3.10 L Hgb 10.2 L Hct 29.1 L MCV 93.9 MCH 32.9 MCHC 35.1 RDW 12.5 Plt Count 238 MPV 10.0 Gran % Lymph % (Auto) [place] % (Auto) Eos % (Auto) Baso % (Auto) Gran # Lymph # (Auto) [place] # (Auto) Eos # (Auto) Baso # (Auto) Total Counted 100 Seg Neutrophils % 69 Band Neutrophils % 8 Lymphocytes % 8 L Monocytes % (Manual) 13 H Eosinophils % (Manual) 1 Metamyelocytes % 1 H WBC Morphology Abnorm A Toxic Granulation Few A Platelet Estimate Normal RBC Morphology Normal ESR Sodium 132 L Potassium 4.3 Chloride 99 Carbon Dioxide 20 L Anion Gap 13.0 BUN 8 Creatinine 0.7 GFR Calculation 122 Glucose 79 Uric Acid 2.5 Calcium 8.0 L Phosphorus 3.2 Magnesium 1.6 Total Bilirubin 0.7 Direct Bilirubin 0.2 GGT 237 H AST 17 ALT 19 Alkaline Phosphatase 148 H Lactate Dehydrogenase 218 Total Creatine Kinase C-Reactive Protein Total Protein 5.5 L Total Protein (PEP) Albumin 2.4 L Albumin (PEP) Globulin 3.1 Globulin (PEP) Albumin/Globulin Ratio 0.8 L Albumin/Globulin (PEP) Krhch-9-Qmgepwicd Iqdng-6-Vncjhtvta Beta Globulins Gamma Globulins PEP Interpretation Triglycerides 179 H Rheumatoid Factor TEVIN Titer TEVIN FA Screen TEVIN Pattern SS-A Antibody SS-B Antibody Sm ([place]) Antibody SM/ASSEMBLER 1ST SHIFT Antibody Scl-70 Antibody Double Strand DNA Ab Ribosomal P Prot Ab Thyroid Peroxidase Ab Complement C3c Complement C4c Ur L.pneumophila Ag Not detected Preliminary micro results at discharge 09/30/19 17:50 Blood Culture - Preliminary Blood 09/30/19 17:58 Blood Culture - Preliminary Blood 09/29/19 12:20 Blood Culture - Preliminary Blood 09/29/19 12:50 Blood Culture - Preliminary Blood Medical - DS: A/P - Patient/Caregiver Discharge Instructions Activity: increase activity as tolerated Diet: Regular Diet Additional Instructions: Establish with PCP and follow-up with PCP in 3 to 7 days. Referral to see food vendor in 5-day 14 days to evaluate for hepatomegaly - Follow up Plan Follow up with: No,PCP [Primary Care Provider] - Disposition: Home, Self-Care Prognosis: Fair Rehab Potential: Fair Overall status at discharge: patient is progressing back to baseline Medical - DS: Qual - VTE Deep Vein Thrombosis/Pulmonary Embolism Present on Admission: No
[2019-10-03 14:46] LABS: Albumin PEP 2.09 gm/dl (3.1-4.7); Albumin/Globulin Ratio PEP 0.7 (0.9-1.7); Alpha-1-Globulins 0.47 gm/dl (0.1-0.5); Alpha-2-Globulins 1.28 gm/dL (0.4-1.2); Beta Globulins 0.67 gm/dL (0.6-1.2); Gamma Globulins 0.79 gm/dL (0.5-1.7); Globulin PEP 3.2 gm/dl (2.4-3.6)
[2019-10-03 16:04] LABS: EBV Early Antigen-SO < 9.00 U/mL
== END 2019-10-03 11:30 | disposition home or self-care (01) | DRG 871 ==
LOC: ED 13:31 → ICU 18:40 → MEDSUR 09-29 17:10
PROVIDERS: ADMIT Internal Medicine; ATTEND Internal Medicine